=== PATIENT | male | born 1950 | race Caucasian/White ===

== ENCOUNTER 2016-05-26 09:00 | Outpatient (RCR) | payer OTHER ==
[~2016-05-26 09:00] MED LIST: ADVIL200 MG PO; APRESOLINE 25MG25 MG PO; ASPIRIN 81M81 MG/TA2 PO; ATIVAN 0.50.5 MG/TAB PO; BACTROBAN22 TOP; CALCITRIOL PO; CATAPRES 0.1MG0.1 MG PO; CEFTIN500 MG PO; CELEBREX 1100 MG/CAP PO; CEPHALEXIN500 M1 PO; COREG 6.256.25 MG/TA PO; COREG12.5 MG PO; COZAAR100 MG PO; DESYREL 100MG100 MG PO; EFFEXOR-XR150 MG PO; FISH OIL1000 MG PO; FLAX OIL1000 MG PO; FLOMAX 0.40.4 MG/CAP PO; GENTAM TOP; LAMICTAL 100MG100 MG PO; LAMICTAL200 MG PO; LANTUS100 U/ML SC; LIPITOR 80MG80 MG PO; LOPRESSOR 550 MG/TAB PO; NEPHROCAP PO; NEPHROVITE; NEUT PO; NICORETTE2 M1 MM; NICORETTE2 M1 PO; NORCO 325 MG-51 TAB PO; NORVASC 5MG5 MG/TAB PO; NOVOLOG 100U100 U/M1 SQ; NOVOLOG FLEX100 U/ML SC; PEPCID 20MG TAB20 MG PO; PERCOCET 325 MG1 TA2 PO; PHOS LO PO; PHOSLO667 MG PO; PROAIR HFA0.09 MG/AC IH; ROCALTROL0.5 MCG PO; TYLENOL 500MG500 MG PO; ULTRAM 50MG TAB50 MG PO; VASOTEC 10M10 MG/TAB PO; XANAX .25M0.25 MG/TA PO; XANAX 0.5MG0.5 MG PO; ZANTAC 150150 MG PO; ZANTAC 150MG T150 MG PO; ZOFRAN 4MG T4 MG/TAB PO; ZOFRAN8 MG PO
== END 2016-06-02 | disposition home or self-care (01) ==
LOC: WSPT
DX: R53.1 Weakness (principal)
CPT/HCPCS: G0283-GP; G8978-GP; G8979-GP

== ENCOUNTER 2016-07-05 09:30 | Emergency (ER) | payer OTHER ==
[~2016-07-05] VITALS: Ht 182.9 cm; Wt 92.5 kg
[2016-07-05 09:34] VITALS: TEMP 98.7
[2016-07-05 10:17] LABS: ADJUSTED CALCIUM 9.8 mg/dL (8.4-10.2); ALBUMIN 4.4 gm/dL (3.5-5.0); BILIRUBIN,TOTAL 0.8 mg/dL (0.0-1.0); CALCIUM 10.1 mg/dL (8.4-10.2); POTASSIUM 5.4 mmol/L (3.4-5.0); TOTAL PROTEIN 7.8 gm/dL (6.4-8.2)
[2016-07-05 10:18] LABS: BASO # 0.1 (0.0-0.2); BASO % 0.8 % (0.0-2.0); EOS # 0.4 (0.0-0.7); EOS % 4.1 % (0-4.0); GRAN # 6.1 (1.4-6.5); GRAN % 62.1 % (42.2-75.2); LYMPH # 2.4 (1.2-3.4); LYMPH % 24.2 % (20.0-51.0); MEAN CELL VOLUME 97 fl (80.0-100.0); MEAN CORPUSCULAR HGB CONC 33 g/dl (33.0-37.0); MEAN PLATELET VOLUME 10.2 fl (7.4-10.4); MONO # 0.8 (0.1-0.6); MONO % 8.5 % (1.7-9.3); PLATELET COUNT 242 K/mm3 (130-400); RED BLOOD COUNT 2.84 M/mm3 (4.20-5.60); REDCELL DISTRIBUTION WIDTH-CV 13.1 % (11.5-14.5); WHITE BLOOD COUNT 9.8 K/mm3 (4.8-10.8)
[2016-07-05 10:30] LABS: HEMATOCRIT 27.6 % (42.0-52.0); HEMOGLOBIN 9.2 g/dl (13.5-18.0); MEAN CORPUSCULAR HEMOGLOBIN 32 pg (27.0-31.0)
[2016-07-05 10:36] LABS: CREATININE, serum 10.9 mg/dL (0.66-1.25)
[2016-07-05] MEDS ORDERED: ARANESP0.04 MG/ML SQ (11:01)
[2016-07-05] MEDS ORDERED: RENA-VITE1 TAB PO (11:01)
[2016-07-05] MEDS ORDERED: CALCITRIOL PO (11:02)
[2016-07-05 12:45] VITALS: BP 150/82; PULSE 86
== END 2016-07-05 12:46 | disposition home or self-care (01) ==
LOC: COL.ER 09:30
PROVIDERS: Emergency Medicine
DX: R31.9 Hematuria, unspecified (principal); E11.22 Type 2 diabetes mellitus with diabetic chronic kidney disease; I12.0 Hypertensive chronic kidney disease with stage 5 chronic kidney disease or end stage renal disease; N18.6 End stage renal disease; F17.210 Nicotine dependence, cigarettes, uncomplicated; Z99.2 Dependence on renal dialysis; I73.9 Peripheral vascular disease, unspecified; D64.9 Anemia, unspecified
CPT/HCPCS: Q9967

== ENCOUNTER 2016-08-11 09:00 | Outpatient (RCR) | payer OTHER ==
[~2016-08-11 09:00] MED LIST changes: +ARANESP0.04 MG/ML SQ; +RENA-VITE1 TAB PO
[2016-08-26] MEDS ORDERED: XANAX .25M0.25 MG/TA PO (14:39)
[2016-08-26] MEDS ORDERED: LIPITOR 80MG80 MG PO ×2 (14:41→14:44)
[2016-08-26] MEDS ORDERED: LASIX 40MG TABL40 MG PO (14:43)
[2016-08-26] MEDS ORDERED: APRESOLINE50 MG PO (14:46)
[2016-08-26] MEDS ORDERED: LANTUS100 U/ML SQ (14:48)
[2016-08-26] MEDS ORDERED: LAMICTAL200 MG PO (14:51)
[2016-08-26] MEDS ORDERED: NEPRO CARB STEADY PO (14:54)
[2016-08-26] MEDS ORDERED: NICORETTE2 M1 PO (14:55)
[2016-08-26] MEDS ORDERED: NICODERM C14 MG/PATC TD (14:55)
[2016-08-26] MEDS ORDERED: RENVELA800 MG PO (15:00)
[2016-08-26] MEDS ORDERED: ARANESP0.04 MG/ML SQ ×2 (15:03→15:17)
[2016-08-26] MEDS ORDERED: SODIUM FER62.5 MG/5 IV (15:08)
[2016-08-26] MEDS ORDERED: TYLENOL 500MG500 MG PO (15:09)
[2016-08-26] MEDS ORDERED: VITAMIN E1000 U/CAP PO (15:10)
[2016-08-26] MEDS ORDERED: ZANTAC 150MG T150 MG PO (15:10)
== END 2016-09-05 | disposition still patient (30) ==
LOC: WSPT
DX: R53.1 Weakness (principal)

== ENCOUNTER 2016-08-26 13:30 | Day surgery (SDC) | payer OTHER ==
[~2016-08-26] VITALS: Ht 182.9 cm; Wt 94.2 kg
[2016-08-26] VITALS (9 sets, daily range): BP systolic 109–149; BP diastolic 57–94; PULSE 92–104; TEMP 97.5–98.9
[2016-08-26 14:15] LABS: HEMATOCRIT 27.7 % (42.0-52.0); MEAN CELL VOLUME 101 fl (80.0-100.0); MEAN CORPUSCULAR HEMOGLOBIN 33 pg (27.0-31.0); MEAN CORPUSCULAR HGB CONC 33 g/dl (33.0-37.0); MEAN PLATELET VOLUME 9.3 fl (7.4-10.4); PLATELET COUNT 337 K/mm3 (130-400); RED BLOOD COUNT 2.74 M/mm3 (4.20-5.60); WHITE BLOOD COUNT 12.6 K/mm3 (4.8-10.8)
[2016-08-26 14:32] LABS: CALCIUM 9.6 mg/dL (8.4-10.2); POTASSIUM 4.6 mmol/L (3.4-5.0)
[2016-08-26] MEDS ORDERED: XANAX .25M0.25 MG/TA PO (14:39)
[2016-08-26] MEDS ORDERED: LIPITOR 80MG80 MG PO ×2 (14:41→14:44)
[2016-08-26] MEDS ORDERED: LASIX 40MG TABL40 MG PO (14:43)
[2016-08-26] MEDS ORDERED: APRESOLINE50 MG PO (14:46)
[2016-08-26] MEDS ORDERED: LANTUS100 U/ML SQ (14:48)
[2016-08-26] MEDS ORDERED: LAMICTAL200 MG PO (14:51)
[2016-08-26] MEDS ORDERED: NEPRO CARB STEADY PO (14:54)
[2016-08-26] MEDS ORDERED: NICORETTE2 M1 PO (14:55)
[2016-08-26] MEDS ORDERED: NICODERM C14 MG/PATC TD (14:55)
[2016-08-26 14:59] LABS: CREATININE, serum 5.84 mg/dL (0.66-1.25)
[2016-08-26] MEDS ORDERED: RENVELA800 MG PO (15:00)
[2016-08-26] MEDS ORDERED: ARANESP0.04 MG/ML SQ ×2 (15:03→15:17)
[2016-08-26] MEDS ORDERED: SODIUM FER62.5 MG/5 IV (15:08)
[2016-08-26] MEDS ORDERED: TYLENOL 500MG500 MG PO (15:09)
[2016-08-26] MEDS ORDERED: ZANTAC 150MG T150 MG PO (15:10)
[2016-08-26] MEDS ORDERED: VITAMIN E1000 U/CAP PO (15:10)
[2016-08-27 01:00] VITALS: BP 150/74; PULSE 114; TEMP 98.8
[2016-08-27 05:10] VITALS: BP 159/81; PULSE 105; TEMP 97.8
== END 2016-08-27 10:59 | disposition home or self-care (01) ==
LOC: SDCO 13:30 → SURG 18:52 → SDCO 08-27 10:59
PROVIDERS: Nurse Anesthetist, Certified Registered
DX: N32.9 Bladder disorder, unspecified (principal); I12.0 Hypertensive chronic kidney disease with stage 5 chronic kidney disease or end stage renal disease; E11.22 Type 2 diabetes mellitus with diabetic chronic kidney disease; E11.621 Type 2 diabetes mellitus with foot ulcer; E11.40 Type 2 diabetes mellitus with diabetic neuropathy, unspecified; N18.6 End stage renal disease; F17.210 Nicotine dependence, cigarettes, uncomplicated; D64.9 Anemia, unspecified; K21.9 Gastro-esophageal reflux disease without esophagitis; I50.9 Heart failure, unspecified; I48.91 Unspecified atrial fibrillation; J44.9 Chronic obstructive pulmonary disease, unspecified; G47.33 Obstructive sleep apnea (adult) (pediatric); E78.5 Hyperlipidemia, unspecified; Z79.84 Long term (current) use of oral hypoglycemic drugs; Z95.820 Peripheral vascular angioplasty status with implants and grafts; Z80.42 Family history of malignant neoplasm of prostate; Z80.9 Family history of malignant neoplasm, unspecified; Z99.2 Dependence on renal dialysis; Z79.4 Long term (current) use of insulin
CPT/HCPCS: OP; A9284; C1769; J2250; J2704; J3010; J7030; Q9967

== ENCOUNTER 2016-09-24 07:55 | Inpatient (IN) | payer OTHER ==
[2016-09-24] VITALS (9 sets, daily range): BP systolic 128–148; BP diastolic 66–94; PULSE 88–101; TEMP 98.2–98.3
[~2016-09-24] VITALS: Ht 182.9 cm; Wt 94.5 kg
[~2016-09-24 07:55] MED LIST changes: +APRESOLINE50 MG PO; +LANTUS100 U/ML SQ; +LASIX 40MG TABL40 MG PO; +NEPRO CARB STEADY PO; +NICODERM C14 MG/PATC TD; +RENVELA800 MG PO; +SODIUM FER62.5 MG/5 IV; +VITAMIN E1000 U/CAP PO
[2016-09-24 09:29] LABS: BASO # 0.1 (0.0-0.2); BASO % 0.5 % (0.0-2.0); EOS # 0.4 (0.0-0.7); EOS % 4.1 % (0-4.0); GRAN # 7.6 (1.4-6.5); GRAN % 75.1 % (42.2-75.2); LYMPH # 1.4 (1.2-3.4); LYMPH % 13.4 % (20.0-51.0); MEAN CELL VOLUME 101 fl (80.0-100.0); MEAN CORPUSCULAR HGB CONC 31 g/dl (33.0-37.0); MEAN PLATELET VOLUME 10.2 fl (7.4-10.4); MONO # 0.7 (0.1-0.6); MONO % 6.6 % (1.7-9.3); PLATELET COUNT 264 K/mm3 (130-400); REDCELL DISTRIBUTION WIDTH-CV 14.3 % (11.5-14.5); WHITE BLOOD COUNT 10.1 K/mm3 (4.8-10.8)
[2016-09-24 09:31] LABS: HEMATOCRIT 21.1 % (42.0-52.0); HEMOGLOBIN 6.6 g/dl (13.5-18.0); MEAN CORPUSCULAR HEMOGLOBIN 31 pg (27.0-31.0)
[2016-09-24 09:39] LABS: ADJUSTED CALCIUM 9.7 mg/dL (8.4-10.2); ALBUMIN 3.8 gm/dL (3.5-5.0); BILIRUBIN,TOTAL 0.5 mg/dL (0.0-1.0); C-REACTIVE PROTEIN 7.1 mg/dL (0.0-0.9); CALCIUM 9.5 mg/dL (8.4-10.2); MAGNESIUM 2.4 mg/dL (1.6-2.3); POTASSIUM 4.2 mmol/L (3.4-5.0); TOTAL PROTEIN 7.2 gm/dL (6.4-8.2)
[2016-09-24 09:45] LABS: CREATININE, serum 6.65 mg/dL (0.66-1.25)
[2016-09-24 09:52] LABS: ERYTHROCYTE SEDIMENTATION RATE > 140 mm/hr (0-30)
[2016-09-24] MEDS ORDERED: NICORETTE2 M1 MM (09:58)
[2016-09-24] MEDS ORDERED: [UNRECOGNIZED DRUG - OTHER] PO (09:59)
[2016-09-25] VITALS (15 sets, daily range): BP systolic 139–179; BP diastolic 72–94; PULSE 94–108; TEMP 97.5–99
[2016-09-25 06:06] LABS: BASO # 0.1 (0.0-0.2); BASO % 1.2 % (0.0-2.0); EOS # 0.4 (0.0-0.7); EOS % 4.9 % (0-4.0); GRAN # 6.2 (1.4-6.5); GRAN % 72.1 % (42.2-75.2); HEMATOCRIT 23.6 % (42.0-52.0); HEMOGLOBIN 7.4 g/dl (13.5-18.0); LYMPH # 1.3 (1.2-3.4); LYMPH % 15.3 % (20.0-51.0); MEAN CELL VOLUME 98 fl (80.0-100.0); MEAN CORPUSCULAR HEMOGLOBIN 31 pg (27.0-31.0); MEAN CORPUSCULAR HGB CONC 31 g/dl (33.0-37.0); MEAN PLATELET VOLUME 9.9 fl (7.4-10.4); MONO # 0.5 (0.1-0.6); PLATELET COUNT 291 K/mm3 (130-400); REDCELL DISTRIBUTION WIDTH-CV 14.6 % (11.5-14.5); WHITE BLOOD COUNT 8.6 K/mm3 (4.8-10.8)
[2016-09-25 06:16] LABS: CALCIUM 9.7 mg/dL (8.4-10.2); POTASSIUM 4.9 mmol/L (3.4-5.0)
[2016-09-25 06:18] LABS: CREATININE, serum 4.86 mg/dL (0.66-1.25)
[2016-09-26 04:33] VITALS: BP 138/74; PULSE 94; TEMP 97.9
[2016-09-26 07:26] LABS: BASO # 0.1 (0.0-0.2); BASO % 0.9 % (0.0-2.0); EOS # 0.5 (0.0-0.7); EOS % 4.8 % (0-4.0); GRAN # 7.5 (1.4-6.5); GRAN % 74.7 % (42.2-75.2); LYMPH # 1.4 (1.2-3.4); LYMPH % 13.5 % (20.0-51.0); MEAN CELL VOLUME 98 fl (80.0-100.0); MEAN CORPUSCULAR HGB CONC 32 g/dl (33.0-37.0); MEAN PLATELET VOLUME 10.7 fl (7.4-10.4); MONO # 0.6 (0.1-0.6); MONO % 5.5 % (1.7-9.3); PLATELET COUNT 316 K/mm3 (130-400); RED BLOOD COUNT 3.08 M/mm3 (4.20-5.60); REDCELL DISTRIBUTION WIDTH-CV 15.2 % (11.5-14.5)
[2016-09-26 07:27] LABS: HEMATOCRIT 30.1 % (42.0-52.0); HEMOGLOBIN 9.5 g/dl (13.5-18.0); MEAN CORPUSCULAR HEMOGLOBIN 31 pg (27.0-31.0)
[2016-09-26 07:38] LABS: ALBUMIN 4.2 gm/dL (3.5-5.0); CALCIUM 10.1 mg/dL (8.4-10.2); PHOSPHOROUS 5.4 mg/dL (2.5-4.5); POTASSIUM 5.5 mmol/L (3.4-5.0)
[2016-09-26 07:41] LABS: CREATININE, serum 6.72 mg/dL (0.66-1.25)
[2016-09-26 08:04] VITALS: BP 130/69; PULSE 94; TEMP 97.8
[2016-09-26 11:18] VITALS: BP 137/74; BP 154/70; PULSE 100; TEMP 97.7; TEMP 98.6
[2016-09-26 16:15] VITALS: BP 159/91; PULSE 106; TEMP 97.5
[2016-09-26 20:00] VITALS: BP 137/74; PULSE 96; TEMP 97.6
[2016-09-26 23:23] VITALS: BP 123/76; PULSE 86; TEMP 97.4
[2016-09-27 03:37] VITALS: BP 123/73; PULSE 95; TEMP 97.5
[2016-09-27 06:44] LABS: MEAN CELL VOLUME 98 fl (80.0-100.0); MEAN CORPUSCULAR HGB CONC 31 g/dl (33.0-37.0); MEAN PLATELET VOLUME 10.5 fl (7.4-10.4); PLATELET COUNT 313 K/mm3 (130-400); RED BLOOD COUNT 2.88 M/mm3 (4.20-5.60); REDCELL DISTRIBUTION WIDTH-CV 14.8 % (11.5-14.5); WHITE BLOOD COUNT 11.2 K/mm3 (4.8-10.8)
[2016-09-27 06:47] LABS: ADD PATHOLOGY DIFF REVIEW NO; HEMATOCRIT 28.3 % (42.0-52.0); HEMOGLOBIN 8.9 g/dl (13.5-18.0); MEAN CORPUSCULAR HEMOGLOBIN 31 pg (27.0-31.0)
[2016-09-27 06:51] LABS: ALBUMIN 4.2 gm/dL (3.5-5.0); CALCIUM 9.7 mg/dL (8.4-10.2); PHOSPHOROUS 5.8 mg/dL (2.5-4.5); POTASSIUM 5.3 mmol/L (3.4-5.0)
[2016-09-27 06:53] LABS: CREATININE, serum 8.22 mg/dL (0.66-1.25)
[2016-09-27 07:25] LABS: BAND 10 % (0-10); METAMYELOCYTE 2 % (0-0); MYELOCYTE 1 % (0-0); NEUTROPHILS 76 % (42.0-75.2); TOTAL CELLS COUNTED 100
[2016-09-27 07:26] LABS: HYPOCHROMIA 1+; PLATELET ESTIMATE INCREASED (NORMAL)
[2016-09-27 07:27] LABS: OVALOCYTES 1+
[2016-09-27 08:36] VITALS: BP 139/68; PULSE 98; TEMP 97.6
[2016-09-27] MEDS ORDERED: LASIX 80MG TABL80 MG PO (12:40)
== END 2016-09-27 13:27 | disposition home or self-care (01) | DRG 638 ==
LOC: COL.ER 07:55 → MEDICAL 09:52
PROVIDERS: Emergency Medicine; Internal Medicine
PROC: 5A1D60Z (ICD-10-PCS; principal; 2016-09-24)
DX: E11.621 Type 2 diabetes mellitus with foot ulcer (principal); I12.0 Hypertensive chronic kidney disease with stage 5 chronic kidney disease or end stage renal disease; L03.115 Cellulitis of right lower limb; E11.22 Type 2 diabetes mellitus with diabetic chronic kidney disease; N18.6 End stage renal disease; D63.1 Anemia in chronic kidney disease; F17.210 Nicotine dependence, cigarettes, uncomplicated; S92.354A Nondisplaced fracture of fifth metatarsal bone, right foot, initial encounter for closed fracture; Z99.2 Dependence on renal dialysis; Z79.4 Long term (current) use of insulin
CPT/HCPCS: J0692; J0882; J1815; J2270; J2916; J3370; J7050; P9016

== ENCOUNTER 2016-10-21 08:53 | Outpatient (CLI) | payer OTHER ==
[2016-10-21] VITALS (9 sets, daily range): BP systolic 125–156; BP diastolic 62–91; PULSE 92–105; TEMP 98.1
[~2016-10-21] VITALS: Ht 182.9 cm; Wt 89.5 kg
[~2016-10-21 08:53] MED LIST changes: +LASIX 80MG TABL80 MG PO; +[UNRECOGNIZED DRUG - OTHER] PO
[2016-10-21] MEDS ORDERED: NORVASC 5MG5 MG/TAB PO (10:39)
== END 2016-10-21 14:15 | disposition home or self-care (01) ==
LOC: COL.CAR 08:53
DX: Z45.2 Encounter for adjustment and management of vascular access device (principal); I12.0 Hypertensive chronic kidney disease with stage 5 chronic kidney disease or end stage renal disease; E11.22 Type 2 diabetes mellitus with diabetic chronic kidney disease; N18.6 End stage renal disease; J44.9 Chronic obstructive pulmonary disease, unspecified; Z79.4 Long term (current) use of insulin
CPT/HCPCS: J2250; J3010; Q9967

== ENCOUNTER 2017-03-22 07:57 | Day surgery (SDC) | payer OTHER ==
[~2017-03-22] VITALS: Ht 182.9 cm; Wt 90.1 kg
[2017-03-22 08:48] VITALS: BP 133/64; PULSE 86; TEMP 97.8
[2017-03-22] MEDS ORDERED: VITAMIN D31000 IU PO (08:59)
[2017-03-22 14:09] VITALS: BP 136/58; PULSE 101
[2017-03-22] MEDS ORDERED: NORCO 325 MG-51 TAB PO (14:16)
[2017-03-22 14:24] VITALS: BP 144/73; PULSE 102
[2017-03-22 14:39] VITALS: BP 147/71; PULSE 101
== END 2017-03-22 15:00 | disposition home or self-care (01) ==
LOC: SDCO 07:57
DX: M71.321 Other bursal cyst, right elbow (principal); Z88.8 Allergy status to other drugs, medicaments and biological substances; D64.9 Anemia, unspecified
CPT/HCPCS: J0690; J2250; J2704; J3010

== ENCOUNTER 2017-05-25 03:13 | Emergency (ER) | payer MEDICARE, OTHER ==
[~2017-05-25] VITALS: Ht 182.9 cm; Wt 87.7 kg
[~2017-05-25 03:13] MED LIST changes: +VITAMIN D31000 IU PO
[2017-05-25 03:16] VITALS: TEMP 97.7
[2017-05-25 03:47] LABS: BASO # 0.1 (0.0-0.2); BASO % 0.8 % (0.0-2.0); EOS # 0.2 (0.0-0.7); EOS % 2.2 % (0-4.0); GRAN # 6.1 (1.4-6.5); GRAN % 79.1 % (42.2-75.2); HEMATOCRIT 30.9 % (42.0-52.0); HEMOGLOBIN 9.8 g/dl (13.5-18.0); LYMPH # 0.6 (1.2-3.4); LYMPH % 8.4 % (20.0-51.0); MEAN CELL VOLUME 103 fl (80.0-100.0); MEAN CORPUSCULAR HEMOGLOBIN 33 pg (27.0-31.0); MEAN CORPUSCULAR HGB CONC 32 g/dl (33.0-37.0); MEAN PLATELET VOLUME 10.6 fl (7.4-10.4); MONO # 0.7 (0.1-0.6); MONO % 9.2 % (1.7-9.3); PLATELET COUNT 208 K/mm3 (130-400); RED BLOOD COUNT 3.01 M/mm3 (4.20-5.60); REDCELL DISTRIBUTION WIDTH-CV 16.9 % (11.5-14.5)
[2017-05-25] MEDS ORDERED: PEPCID AC20 MG PO (03:56)
[2017-05-25 04:01] LABS: ALANINE AMINOTRANSFERASE 37 U/L (21-72); ALBUMIN 4.4 gm/dL (3.5-5.0); ALKALINE PHOSPHATASE 101 U/L (50-136); ANION GAP 21 mmol/L (7-16); AST,SGOT 31 U/L (15-37); BILIRUBIN,TOTAL 0.7 mg/dL (0.0-1.0); BLOOD UREA NITROGEN 79 mg/dL (9-20); CALCIUM 10.2 mg/dL (8.4-10.2); CARBON DIOXIDE 21 mmol/L (22-30); CHLORIDE 92 mmol/L (98-107); GLUCOSE 188 mg/dL (74-106); SODIUM 134 mmol/L (137-145); TOTAL PROTEIN 7.7 gm/dL (6.4-8.2)
[2017-05-25 04:13] LABS: POTASSIUM 6.5 mmol/L (3.4-5.0)
[2017-05-25 04:14] LABS: CREATININE, serum 7.39 mg/dL (0.66-1.25); TROPONIN-I < 0.012 ng/mL (0.000-0.034)
[2017-05-25 05:40] VITALS: BP 139/81; PULSE 89
== END 2017-05-25 05:40 | disposition home or self-care (01) ==
LOC: COL.ER 03:13
PROVIDERS: Emergency Medicine
DX: E87.5 Hyperkalemia (principal); R06.02 Shortness of breath; E87.70 Fluid overload, unspecified; I12.0 Hypertensive chronic kidney disease with stage 5 chronic kidney disease or end stage renal disease; E11.22 Type 2 diabetes mellitus with diabetic chronic kidney disease; N18.6 End stage renal disease; I73.9 Peripheral vascular disease, unspecified; E66.9 Obesity, unspecified; F17.210 Nicotine dependence, cigarettes, uncomplicated; Z99.2 Dependence on renal dialysis; Z79.4 Long term (current) use of insulin

== ENCOUNTER 2017-07-10 21:41 | Emergency (ER) | payer OTHER ==
[~2017-07-10] VITALS: Ht 182.9 cm; Wt 85.0 kg
[~2017-07-10 21:41] MED LIST changes: +PEPCID AC20 MG PO
[2017-07-10 21:43] VITALS: TEMP 96.8
[2017-07-10] MEDS ORDERED: FLEXERIL 1010 MG/TAB PO (22:44)
[2017-07-10 23:26] VITALS: BP 125/74; PULSE 88
== END 2017-07-10 23:30 | disposition home or self-care (01) ==
LOC: COL.ER 21:41
DX: S29.9XXA Unspecified injury of thorax, initial encounter (principal); S20.211A Contusion of right front wall of thorax, initial encounter; E11.22 Type 2 diabetes mellitus with diabetic chronic kidney disease; N18.6 End stage renal disease; F17.210 Nicotine dependence, cigarettes, uncomplicated; Z99.2 Dependence on renal dialysis; W01.0XXA Fall on same level from slipping, tripping and stumbling without subsequent striking against object, initial encounter
CPT/HCPCS: A9284; J2270; J2360

== ENCOUNTER 2017-07-13 06:06 | Inpatient (IN) | payer MEDICARE ==
[~2017-07-13] VITALS: Ht 182.9 cm; Wt 85.0 kg
[~2017-07-13 06:06] MED LIST changes: +FLEXERIL 1010 MG/TAB PO
[2017-07-13 07:29] LABS: ALANINE AMINOTRANSFERASE 39 U/L (21-72); ALBUMIN 4.3 gm/dL (3.5-5.0); ALKALINE PHOSPHATASE 110 U/L (50-136); ANION GAP 30 mmol/L (7-16); AST,SGOT 44 U/L (15-37); BILIRUBIN,TOTAL 0.7 mg/dL (0.0-1.0); CALCIUM 9.7 mg/dL (8.4-10.2); GLUCOSE 97 mg/dL (74-106); MAGNESIUM 2.9 mg/dL (1.6-2.3); SODIUM 128 mmol/L (137-145); TOTAL PROTEIN 8.3 gm/dL (6.4-8.2)
[2017-07-13 07:30] LABS: BASO # 0.1 (0.0-0.2); BASO % 0.6 % (0.0-2.0); EOS # 0.1 (0.0-0.7); EOS % 0.9 % (0-4.0); GRAN # 8.3 (1.4-6.5); GRAN % 83.1 % (42.2-75.2); HEMATOCRIT 33.9 % (42.0-52.0); LYMPH # 0.8 (1.2-3.4); LYMPH % 8.2 % (20.0-51.0); MEAN CELL VOLUME 97 fl (80.0-100.0); MEAN CORPUSCULAR HEMOGLOBIN 32 pg (27.0-31.0); MEAN CORPUSCULAR HGB CONC 32 g/dl (33.0-37.0); MONO # 0.7 (0.1-0.6); MONO % 6.7 % (1.7-9.3); PLATELET COUNT 273 K/mm3 (130-400); RED BLOOD COUNT 3.49 M/mm3 (4.20-5.60); REDCELL DISTRIBUTION WIDTH-CV 16.9 % (11.5-14.5)
[2017-07-13 07:40] LABS: BLOOD UREA NITROGEN 145 mg/dL (9-20)
[2017-07-13 07:42] LABS: POTASSIUM 7.7 mmol/L (3.4-5.0)
[2017-07-13 07:43] LABS: CARBON DIOXIDE 14 mmol/L (22-30); CHLORIDE 85 mmol/L (98-107); PHOSPHOROUS 9.5 mg/dL (2.5-4.5)
[2017-07-13 07:45] LABS: TROPONIN-I < 0.012 ng/mL (0.000-0.034)
[2017-07-13 13:05] VITALS: BP 161/82; PULSE 85; TEMP 97.6
[2017-07-13 13:17] LABS: CALCIUM 9.9 mg/dL (8.4-10.2)
[2017-07-13] MEDS ORDERED: VITAMIN B COMPL1 SGL PO (13:17)
[2017-07-13] MEDS ORDERED: VITAMIN E1000 U/CAP PO (13:18)
[2017-07-13 13:19] LABS: POTASSIUM 4.6 mmol/L (3.4-5.0)
[2017-07-13 13:21] LABS: CREATININE, serum 6.57 mg/dL (0.66-1.25)
[2017-07-13 15:55] VITALS: BP 143/61; PULSE 94; TEMP 97.8
[2017-07-13 20:47] VITALS: BP 130/73; PULSE 90; TEMP 98.1
[2017-07-14 00:07] VITALS: BP 119/62; PULSE 88; TEMP 97.7
[2017-07-14 04:12] VITALS: BP 126/62; PULSE 94; TEMP 97.6
[2017-07-14 06:26] LABS: BASO % 0.6 % (0.0-2.0); EOS # 0.1 (0.0-0.7); GRAN # 4.9 (1.4-6.5); GRAN % 73.8 % (42.2-75.2); LYMPH # 0.7 (1.2-3.4); LYMPH % 10.8 % (20.0-51.0); MEAN CELL VOLUME 97 fl (80.0-100.0); MEAN CORPUSCULAR HGB CONC 32 g/dl (33.0-37.0); MEAN PLATELET VOLUME 10.1 fl (7.4-10.4); MONO # 0.8 (0.1-0.6); MONO % 12.3 % (1.7-9.3); PLATELET COUNT 221 K/mm3 (130-400); RED BLOOD COUNT 3.11 M/mm3 (4.20-5.60); REDCELL DISTRIBUTION WIDTH-CV 17.3 % (11.5-14.5)
[2017-07-14 06:35] LABS: HEMOGLOBIN 9.7 g/dl (13.5-18.0); MEAN CORPUSCULAR HEMOGLOBIN 31 pg (27.0-31.0)
[2017-07-14 06:48] LABS: CALCIUM 9.3 mg/dL (8.4-10.2); POTASSIUM 5.2 mmol/L (3.4-5.0)
[2017-07-14 07:24] LABS: CREATININE, serum 8.41 mg/dL (0.66-1.25)
[2017-07-14] MEDS ORDERED: ZOFRAN ODT4 MG PO (09:29)
[2017-07-14 10:13] VITALS: BP 140/70; PULSE 97; TEMP 98.8
== END 2017-07-14 12:40 | disposition home or self-care (01) | DRG 640 ==
LOC: COL.ER 06:06 → IMCU 07:50 → MEDICAL 07:50
PROVIDERS: Emergency Medicine; Internal Medicine
PROC: 5A1D70Z Performance of Urinary Filtration, Intermittent, Less than 6 Hours Per Day (ICD-10-PCS; principal; 2017-07-13)
DX: E87.5 Hyperkalemia (principal); N18.6 End stage renal disease; I12.0 Hypertensive chronic kidney disease with stage 5 chronic kidney disease or end stage renal disease; L03.115 Cellulitis of right lower limb; E11.22 Type 2 diabetes mellitus with diabetic chronic kidney disease; Z99.2 Dependence on renal dialysis; D63.1 Anemia in chronic kidney disease; M54.9 Dorsalgia, unspecified
CPT/HCPCS: J0610; J1650; J1815; J2270; J2405

== ENCOUNTER 2017-09-09 13:00 | Outpatient (RCR) | payer OTHER ==
[~2017-09-09 13:00] MED LIST changes: +VITAMIN B COMPL1 SGL PO; +ZOFRAN ODT4 MG PO
== END 2017-09-12 | disposition home or self-care (01) ==
LOC: WSPT
DX: I89.0 Lymphedema, not elsewhere classified (principal)

== ENCOUNTER 2017-11-08 15:15 | Outpatient (RCR) | payer OTHER | END 2017-12-13 | disposition home or self-care (01) | LOC: WSPT | DX: R29.898 Other symptoms and signs involving the musculoskeletal system (principal); Z91.81 History of falling; I89.0 Lymphedema, not elsewhere classified; C44.01 Basal cell carcinoma of skin of lip; I10 Essential (primary) hypertension; F17.210 Nicotine dependence, cigarettes, uncomplicated; Z79.84 Long term (current) use of oral hypoglycemic drugs; N18.6 End stage renal disease; Z99.2 Dependence on renal dialysis; Z79.899 Other long term (current) drug therapy; Z59.0 Homelessness ==

== ENCOUNTER 2018-01-25 15:45 | Outpatient (RCR) | payer OTHER | END 2018-03-19 | disposition home or self-care (01) | LOC: WSPT | DX: R53.1 Weakness (principal); R29.6 Repeated falls; Z91.81 History of falling; N17.8 Other acute kidney failure; Z79.84 Long term (current) use of oral hypoglycemic drugs; Z79.899 Other long term (current) drug therapy ==

== ENCOUNTER 2018-04-20 08:45 | Outpatient (RCR) | payer OTHER ==
[2018-05-30] MEDS ORDERED: GLUCOTROL 5M5 MG/TAB PO (11:09)
[2018-05-30] MEDS ORDERED: MUCUS RELIEF400 M1 PO (11:10)
[2018-05-30] MEDS ORDERED: PRIL40 PO (11:13)
[2018-05-30] MEDS ORDERED: ARANESP0.04 MG/0. SQ (11:21)
[2018-06-02] MEDS ORDERED: NORCO 325 MG-7.1 TAB PO (12:30)
== END 2018-06-05 | disposition home or self-care (01) ==
LOC: WSPT
DX: I89.0 Lymphedema, not elsewhere classified (principal); Z79.84 Long term (current) use of oral hypoglycemic drugs; Z79.891 Long term (current) use of opiate analgesic; Z79.899 Other long term (current) drug therapy

== ENCOUNTER → 2018-04-27 | Outpatient (CLI) | payer OTHER | LOC: COL.RAD 07:41 | DX: K82.8 Other specified diseases of gallbladder (principal); R18.8 Other ascites ==

== ENCOUNTER 2018-05-30 09:40 | Inpatient (IN) | payer OTHER ==
[~2018-05-30] VITALS: Ht 182.9 cm; Wt 83.5 kg
[2018-05-30 10:06] LABS: BASO # 0.1 (0.0-0.2); EOS # 0.2 (0.0-0.7); EOS % 3.2 % (0-4.0); GRAN # 4.1 (1.4-6.5); GRAN % 69.5 % (42.2-75.2); HEMOGLOBIN 11.4 g/dl (13.5-18.0); LYMPH % 16.6 % (20.0-51.0); MEAN CELL VOLUME 98 fl (80.0-100.0); MEAN CORPUSCULAR HEMOGLOBIN 31 pg (27.0-31.0); MEAN CORPUSCULAR HGB CONC 32 g/dl (33.0-37.0); MEAN PLATELET VOLUME 10.7 fl (7.4-10.4); MONO # 0.6 (0.1-0.6); MONO % 9.4 % (1.7-9.3); PLATELET COUNT 184 K/mm3 (130-400); RED BLOOD COUNT 3.66 M/mm3 (4.20-5.60); REDCELL DISTRIBUTION WIDTH-CV 16.1 % (11.5-14.5)
[2018-05-30 10:11] LABS: HEMATOCRIT 35.7 % (42.0-52.0)
[2018-05-30 10:20] LABS: ALANINE AMINOTRANSFERASE < 6 U/L (21-72); ALBUMIN 3.9 gm/dL (3.5-5.0); ALKALINE PHOSPHATASE 113 U/L (50-136); ANION GAP 16 mmol/L (7-16); AST,SGOT 19 U/L (15-37); BILIRUBIN,TOTAL 1.4 mg/dL (0.0-1.0); BLOOD UREA NITROGEN 80 mg/dL (9-20); C-REACTIVE PROTEIN 1.9 mg/dL (0.0-0.9); CALCIUM 10.2 mg/dL (8.4-10.2); CARBON DIOXIDE 23 mmol/L (22-30); CHLORIDE 95 mmol/L (98-107); GLUCOSE 94 mg/dL (74-106); SODIUM 134 mmol/L (137-145); TOTAL PROTEIN 7.5 gm/dL (6.4-8.2)
[2018-05-30 10:29] LABS: TROPONIN-I 0.021 ng/mL (0.000-0.035)
[2018-05-30 10:53] LABS: CREATININE, serum 9.34 (0.66-1.25)
[2018-05-30 10:54] LABS: POTASSIUM 6.4 mmol/L (3.4-5.0)
[2018-05-30] MEDS ORDERED: GLUCOTROL 5M5 MG/TAB PO (11:09)
[2018-05-30] MEDS ORDERED: MUCUS RELIEF400 M1 PO (11:10)
[2018-05-30] MEDS ORDERED: PRIL40 PO (11:13)
[2018-05-30] MEDS ORDERED: ARANESP0.04 MG/0. SQ (11:21)
--- NOTE | 2018-05-30 11:48 | NUR ---
received report from MAICO Pollack.pt to be transported to room 353 shortly.
--- NOTE | 2018-05-30 13:31 | NUR ---
PATIENT ARRIVED TO ROOM 353.ORIENTED TO ROOM.
--- NOTE | 2018-05-30 13:32 | NUR ---
PT TAKEN TO DIALYSIS AT THIS TIME.C/O CHRONIC BACK PAIN.WILL GIVEN PAIN MED WHEN ORDERS RECEIVED.NO NEEDS VOICED AT THIS TIME.
--- NOTE | 2018-05-30 16:30 | NUR ---
pt tolerated dialysis well.resting in bed at this time.no concerns voiced.
[2018-05-30 16:35] VITALS: BP 106/56; PULSE 80; TEMP 97.8
[2018-05-30 18:21] VITALS: BP 106/56; PULSE 80; TEMP 97.8
--- NOTE | 2018-05-30 19:14 | NUR ---
Assessment complete.patient sitting up in bed.a/ox3.c/o pain to back and BLE.prn morphine given.breathing even and unlabored.abdomen distented and bowel sounds audible and hyperactive.INT to RFA.patient reports skin tear to RFA.dressing CDI.scabs noted to knee and left lower chin.patient says it is as a result of previous falls.BLE is red r/t chronic venous insufficiency.fistula to YANNA.pt denies any other needs at this time.call light in reach
[2018-05-30 19:24] VITALS: BP 127/72; PULSE 81; TEMP 97.7
--- NOTE | 2018-05-30 19:34 | NUR ---
report given to MAICO Silverman
[2018-05-30 23:11] VITALS: BP 108/56; PULSE 73; TEMP 97.9
[2018-05-31 03:27] VITALS: BP 99/55; PULSE 78; TEMP 97.8
--- NOTE | 2018-05-31 04:52 | NUR ---
PT NEEDED PRN MED AT HS FOR PAIN AND A XANAX TO RELAX HIM IN ORDER TO SLEEP. AFTER A COUPLE HOURS PT WAS UNABLE TO GET TO SLEEP AND REQUESTED A TRAZODONE. NO FURTHER C/O SLEEPLESSNESS AFTERWARDS. NO OTHER ISSUES OR CONSERNS VOICED OVERNIGHT
[2018-05-31 06:31] LABS: INR 1.3 (0.8-3.0); PROTHROMBIN TIME 15.1 SECONDS (9.7-12.8)
[2018-05-31 07:12] VITALS: BP 113/67; PULSE 77; TEMP 97.7
--- NOTE | 2018-05-31 08:00 | NUR ---
assesment completed. diminished breath sounds bilateral bases, no SOB. Telemetry on, INT r arm no redness. AV fistula to L upper arm WNL. reportsa aching pain in hands and back as well as sharp pains in ankles and back rating a 6 on the pain scale. primary nurse notified.
[2018-05-31 10:05] VITALS: BP 124/70; PULSE 83; TEMP 97.6
--- NOTE | 2018-05-31 10:40 | NUR ---
no change to assessment, took patient down to dialysis
[2018-05-31 11:04] LABS: BASO % 0.8 % (0.0-2.0); EOS # 0.2 (0.0-0.7); EOS % 4.3 % (0-4.0); GRAN # 3.4 (1.4-6.5); GRAN % 69.2 % (42.2-75.2); HEMOGLOBIN 10.5 g/dl (13.5-18.0); LYMPH # 0.8 (1.2-3.4); LYMPH % 16.7 % (20.0-51.0); MEAN CELL VOLUME 96 fl (80.0-100.0); MEAN CORPUSCULAR HEMOGLOBIN 31 pg (27.0-31.0); MEAN CORPUSCULAR HGB CONC 33 g/dl (33.0-37.0); MEAN PLATELET VOLUME 10.6 fl (7.4-10.4); MONO # 0.4 (0.1-0.6); MONO % 8.8 % (1.7-9.3); PLATELET COUNT 176 K/mm3 (130-400); RED BLOOD COUNT 3.37 M/mm3 (4.20-5.60); REDCELL DISTRIBUTION WIDTH-CV 15.9 % (11.5-14.5)
[2018-05-31 11:08] LABS: CALCIUM 9.4 mg/dL (8.4-10.2); HEMATOCRIT 32.2 % (42.0-52.0); POTASSIUM 4.6 mmol/L (3.4-5.0)
[2018-05-31 11:21] LABS: CREATININE, serum 5.33 (0.66-1.25)
--- NOTE | 2018-05-31 11:49 | NUR ---
Initial visit; Patient thanked Service Order Dispatcher for looking in on him and offering God's blessings.
--- NOTE | 2018-05-31 13:15 | NUR ---
Patient returned from dialysis at this time. No needs at this time.
--- NOTE | 2018-05-31 16:36 | NUR ---
SW met with patient about discharge planning. Patient lives at home alone with his dog. Patient receives primary care and medications through the [facility]. Patient's medications are mailed to him and his PCP visits him at his home. Patient uses a wheelchair, cane, or walker for mobility but no other DME is reported. [facility] and will resume those services once he is discharged. Patient also receives cleaning and cooking assistance through [facility] and those services are paid for by the [facility]. Patient does not report he has a DPOA. Patient also reports he should be able to discharge tomorrow. SW does not anticipate any discharge needs but will continue to follow.
[2018-05-31 16:44] VITALS: BP 123/71; PULSE 89; TEMP 97.5
[2018-05-31 19:55] VITALS: BP 121/72; PULSE 82; TEMP 98.6
[2018-06-01 00:13] VITALS: BP 127/80; PULSE 17; TEMP 98.2
--- NOTE | 2018-06-01 04:18 | NUR ---
PT HAD C/O PAIN AT HS AND NEEDED PAIN MEDS SOON HE COULD GET THEM, ADMINISTERED NEEDED. PT WAS ABLE TO GO TO SLEEP AROUND MIDNIGHT. NO OTHER C/O PAIN AFTERWARD.
[2018-06-01 04:38] VITALS: BP 130/58; PULSE 71; TEMP 97.3
--- NOTE | 2018-06-01 04:45 | NUR ---
PT AROUSE THIS AM AT VITALS CHECK AND WAS INQUIRING ABOUT PAIN MEDS, WAS UNABLE TO HAVE SOME AT THAT TIME, INFORMED PT THAT NEXT MEDS WOULD ABLE TO BE GIVEN AT 0600 AND THAT THIS NURSE WOULD BRING THEM TO HIM AT THAT TIME. PT CHANGED INTO CLEAN GOWN, SOCKS AND PJ PANTS FOR UPCOMING PROCEDURE. NO OTHER CONSERNS VOICED AT THIS TIME
[2018-06-01 07:19] VITALS: BP 121/74; PULSE 77; TEMP 97.4
--- NOTE | 2018-06-01 07:34 | NUR ---
THIS NURSE ADMINSITERED [place]TE WU, PT ASKED ABOUT HIS DILAUDID, AND ASKED IF HE COULD HAVE IT FOR HIS UP COMING PROCEDURE. THIS NURSE TOLD PT THAT DOCTOR ORDERED 4 DOSES OF THE DILAUDID AND THAT THIS WOULD BE HIS 3RD OF 4TH DOSE. DISCUSSED WITH PT THAT HE MAY WANT TO WAIT UNTIL AFTER THE PROCEDURE FOR THE MED DUE TO THE DILAUDID BEING A Q8H MED. PT STATED THAT HE STILL WANTED THE DILAUDID FOR THE PROCEDURE.
--- NOTE | 2018-06-01 07:39 | NUR ---
Consent obtained from patient for CT. Patient taken down by wheelchair. No further needs expressed from patient.
--- NOTE | 2018-06-01 07:40 | NUR ---
PT SIGNED CONSENT AND WENT DOWN FOR PARACENTESIS AT THIS TIME.
--- NOTE | 2018-06-01 08:34 | NUR ---
Patient back to room [address] Patient tolerated well. Call light within reach. No further needs expressed from patient.
--- NOTE | 2018-06-01 09:30 | NUR ---
Assessment complete and charted. Patient A&O, VS WNL. Patient complaints of pain in back, medication given when requested. INT CDI. Fistula PRATIBHA arm, CDI. Rounded abdomen. Patient had a paracentisis right lower quadrant abdomen, tolerated well, bandaid applied. Abrasions BLE scars and open to air. No further needs expressed from patient. Call light within reach
[2018-06-01 09:37] LABS: PERITONEAL -POLYMORPHONUCLEAR 5.3 % (0-25); PERITONEAL FLUID RBC 1000 /mm3 (0-0)
[2018-06-01 11:47] VITALS: BP 113/66; PULSE 99; TEMP 97.2
[2018-06-01 15:28] VITALS: BP 106/68; PULSE 82; TEMP 97.9
--- NOTE | 2018-06-01 17:57 | NUR ---
Patient sitting in recliner. A&O, reporting pain in back, pain medication given when requested. Patient had a paracentesis, RLQ. Puncture site has been draining. Nurse suggested replacing bandadge and putting a pressure dressing on. Patient refused and wants to let puncture site drain. Nurse informed patient that the site should not be draining and a pressure dressing is advised. Patient verbalized an understanding and still refused dressing change. VS stable. IV CDI. Patient has been using wheelchair in the hallway and tolerating well. No further needs expressed from patient. Call light within reach
--- NOTE | 2018-06-01 18:34 | NUR ---
Patient took bandaid off puncture site on RLQ. Patient has a towel over site to absorb fluid draining from site. Patient is refusing to have a pressure dressing on site. Nurse informed patient the risk of infection with no dressing over punture site. Patient verbalized an understanding and is still refusing to have a pressure dressing applied. Call light within reach
[2018-06-01 20:40] VITALS: BP 1008/72; BP 108/72; PULSE 79; TEMP 98.2
--- NOTE | 2018-06-02 04:12 | NUR ---
PT REQUESTED PRN DILAUDID AT HS AND ATIVAN. AFTER MED ADMINSTRATION PT WENT TO BED AND FURTHER C/O PAIN DURING THE NOC. APPEARED TO HAVE SLEPT WELL. PT CONTINUES TO HAVE TOWEL COLLECTING DRAINAGE FROM PARACENTESIS PUNTURE SITE.
[2018-06-02 04:54] VITALS: BP 132/73; PULSE 84; TEMP 97.9
[2018-06-02 08:27] VITALS: BP 117/75; PULSE 90; TEMP 98.1
--- NOTE | 2018-06-02 09:36 | NUR ---
Patient awaken for AM medications. Upon waking patient is very uncomfortable in area where paracentsis was done. Patient given IV/PO pain medication as he is so uncomfortable in lower back and abdomen. Patient had towel asorbing the drainage in his abdomen. Towels were dry this AM. Noted very little drainage. Patient agreeable to have moisture wicking dressing applied. ABD remains rounded but not as hard as this nurses previous assessment two days ago. No other needs at this time. Call light in place
--- NOTE | 2018-06-02 11:00 | NUR ---
Patient to dialysis at this time. States that pain is better with pain medication but still having significant discomfort in abdomen at the site of paracentsis
[2018-06-02 11:19] LABS: BASO # 0.1 (0.0-0.2); BASO % 0.9 % (0.0-2.0); EOS # 0.2 (0.0-0.7); EOS % 4.1 % (0-4.0); GRAN # 3.9 (1.4-6.5); GRAN % 69.3 % (42.2-75.2); HEMOGLOBIN 10.3 g/dl (13.5-18.0); LYMPH # 0.9 (1.2-3.4); LYMPH % 16.4 % (20.0-51.0); MEAN CELL VOLUME 97 fl (80.0-100.0); MEAN CORPUSCULAR HEMOGLOBIN 31 pg (27.0-31.0); MEAN CORPUSCULAR HGB CONC 32 g/dl (33.0-37.0); MEAN PLATELET VOLUME 10.5 fl (7.4-10.4); MONO # 0.5 (0.1-0.6); MONO % 9.1 % (1.7-9.3); PLATELET COUNT 193 K/mm3 (130-400); RED BLOOD COUNT 3.32 M/mm3 (4.20-5.60); REDCELL DISTRIBUTION WIDTH-CV 15.8 % (11.5-14.5)
[2018-06-02 11:20] LABS: HEMATOCRIT 32.1 % (42.0-52.0)
[2018-06-02 11:31] LABS: CALCIUM 9.5 mg/dL (8.4-10.2); POTASSIUM 5.4 mmol/L (3.4-5.0)
[2018-06-02 11:33] LABS: CREATININE, serum 6.62 (0.66-1.25)
--- NOTE | 2018-06-02 11:56 | NUR ---
Follow-up visit; Patient thanked Chargemaster Specialist for looking in on him again today and wishing him well.
[2018-06-02] MEDS ORDERED: NORCO 325 MG-7.1 TAB PO (12:30)
--- NOTE | 2018-06-02 14:00 | NUR ---
[facility] to pickle maker [facility]. Patient transfered to [facility] and discharged at this time with .
--- NOTE | 2018-06-02 14:20 | NUR ---
Patient returned from dialysis at this time.
[2018-06-02 14:59] VITALS: BP 119/65; PULSE 84; TEMP 97.8
--- NOTE | 2018-06-02 15:30 | NUR ---
Reviewed discharge instructions with patient. He verbalizes understanding. Reports that he is probably going to wish that he is going to Rehab. Explained to patient if it got to that point dont be afraid to call social science instructor for direction. Patient verbalizes understanding. Dressing remains intact to abdomen. No noted drainage. Review of discharge medications. No questions at this time. IV pain medication given per his request and then INT discontinued. No other needs at this time. Will await his ride
--- NOTE | 2018-06-02 16:05 | NUR ---
Patient discharged to home at this time.
== END 2018-06-02 16:05 | disposition home health service (06) | DRG 640 ==
LOC: COL.ER 09:40 → MEDICAL 11:08
PROVIDERS: Physician Assistant; ADMIT Internal Medicine
PROC: 5A1D70Z Performance of Urinary Filtration, Intermittent, Less than 6 Hours Per Day (ICD-10-PCS; principal; 2018-05-30)
PROC: 5A1D70Z Performance of Urinary Filtration, Intermittent, Less than 6 Hours Per Day (ICD-10-PCS; 2018-05-31)
PROC: 0W9G3ZZ Drainage of Peritoneal Cavity, Percutaneous Approach (ICD-10-PCS; 2018-06-01)
PROC: 5A1D70Z Performance of Urinary Filtration, Intermittent, Less than 6 Hours Per Day (ICD-10-PCS; 2018-06-02)
DX: E87.5 Hyperkalemia (principal); N18.6 End stage renal disease; I12.0 Hypertensive chronic kidney disease with stage 5 chronic kidney disease or end stage renal disease; N25.81 Secondary hyperparathyroidism of renal origin; R18.8 Other ascites; K76.6 Portal hypertension; E87.70 Fluid overload, unspecified; E11.22 Type 2 diabetes mellitus with diabetic chronic kidney disease; Z99.2 Dependence on renal dialysis; Z91.15 Patient's noncompliance with renal dialysis; I73.9 Peripheral vascular disease, unspecified; Z89.421 Acquired absence of other right toe(s); F17.210 Nicotine dependence, cigarettes, uncomplicated; D63.1 Anemia in chronic kidney disease
CPT/HCPCS: J0882; J1170; J1644; J2270; J7030

== ENCOUNTER 2018-06-30 16:21 | Inpatient (IN) | payer MEDICARE, OTHER ==
[~2018-06-30] VITALS: Ht 182.9 cm; Wt 76.3 kg
[~2018-06-30 16:21] MED LIST changes: +ARANESP0.04 MG/0. SQ; +GLUCOTROL 5M5 MG/TAB PO; +MUCUS RELIEF400 M1 PO; +NORCO 325 MG-7.1 TAB PO; +PRIL40 PO
[2018-06-30 16:51] LABS: BASO # 0.1 (0.0-0.2); BASO % 1.1 % (0.0-2.0); EOS # 0.4 (0.0-0.7); EOS % 4.4 % (0-4.0); GRAN % 74.3 % (42.2-75.2); HEMATOCRIT 34.3 % (42.0-52.0); HEMOGLOBIN 11.2 g/dl (13.5-18.0); LYMPH # 0.9 (1.2-3.4); LYMPH % 11.5 % (20.0-51.0); MEAN CELL VOLUME 96 fl (80.0-100.0); MEAN CORPUSCULAR HEMOGLOBIN 31 pg (27.0-31.0); MEAN CORPUSCULAR HGB CONC 33 g/dl (33.0-37.0); MEAN PLATELET VOLUME 10.9 fl (7.4-10.4); MONO # 0.7 (0.1-0.6); MONO % 8.3 % (1.7-9.3); PLATELET COUNT 216 K/mm3 (130-400); RED BLOOD COUNT 3.57 M/mm3 (4.20-5.60); REDCELL DISTRIBUTION WIDTH-CV 15.6 % (11.5-14.5)
[2018-06-30 16:54] LABS: INR 1.3 (0.8-3.0); PROTHROMBIN TIME 14.5 SECONDS (9.7-12.8)
[2018-06-30 16:56] LABS: PARTIAL THROMBOPLASTIN TIME 38.4 SECONDS (26.0-37.0)
[2018-06-30 17:00] LABS: LACTIC ACID 1.2 mmol/L (0.4-2.0)
[2018-06-30 17:01] LABS: ALANINE AMINOTRANSFERASE 9 U/L (21-72); ALBUMIN 3.9 gm/dL (3.5-5.0); ALKALINE PHOSPHATASE 177 U/L (50-136); ANION GAP 22 mmol/L (7-16); AST,SGOT 22 U/L (15-37); BILIRUBIN,TOTAL 1.5 mg/dL (0.0-1.0); BLOOD UREA NITROGEN 114 mg/dL (9-20); CALCIUM 10.1 mg/dL (8.4-10.2); CARBON DIOXIDE 18 mmol/L (22-30); CHLORIDE 98 mmol/L (98-107); GLUCOSE 87 mg/dL (74-106); LIPASE 143 U/L (23-300); MAGNESIUM 2.4 mg/dL (1.6-2.3); PHOSPHOROUS 7.3 mg/dL (2.5-4.5); SODIUM 138 mmol/L (137-145); TOTAL PROTEIN 7.8 gm/dL (6.4-8.2)
[2018-06-30 17:14] LABS: CREATININE, serum 11.41 (0.66-1.25); TROPONIN-I < 0.012 ng/mL (0.000-0.035)
[2018-06-30 17:16] LABS: POTASSIUM 7.1 mmol/L (3.4-5.0)
--- NOTE | 2018-06-30 19:10 | NUR ---
Report given to Aime NINA and care transfered. Pt back in dialysis at this time.
[2018-06-30 21:07] VITALS: BP 137/72; PULSE 84; TEMP 98.1
--- NOTE | 2018-06-30 22:56 | NUR ---
Completed assessment and admission; PT tolerated all cares and questions well; PT able to IND answer self assessment and medication questions; PT A&Ox4, BS active x4, Last BM 06/30/18, LUE fistual in active use, RW 20G IV INT, +2 edema to bilateral LE with discoloration, ABD distended nontender, LCTA with bilateral diminshed bases, SBA to BR for safety; Dr Joshi has completed medication recon with continued medication orders in place; verbal review with no changes during admission form; Minimal report of pain treated with PRN pain medication; No further assessed or reported concerns at time of exit; PT able to return to comfortable position in bed with personal items and call light within reach; Will continue to monitor. CDA
[2018-06-30 23:17] VITALS: BP 133/76; PULSE 89; TEMP 98.8
[2018-07-01] VITALS (8 sets, daily range): BP systolic 109–133; BP diastolic 62–88; PULSE 75–103; TEMP 97.9–98.8
--- NOTE | 2018-07-01 02:05 | NUR ---
PT resting intermittently in bed; PT requested a fan, although was denied a fan by house at this time; No further reported or assessed concerns or complaints at this time; PT resting in upright position in bed with personal items and call light within reach; Will continue to monitor. CDA
--- NOTE | 2018-07-01 07:18 | NUR ---
Report given to MAICO Carmen; No significant changes or concerns at time of shift change. CDA
--- NOTE | 2018-07-01 07:28 | NUR ---
Report reveived from MAICO Cohen. Pt rounded on. Pt is resting in bed. Call light in reach. Will continue to monitor.
--- NOTE | 2018-07-01 07:29 | NUR ---
Resting quietly at this time. No pain or needs reported. Dialysis called for the patient-to transport downstairs via wheelchair.
--- NOTE | 2018-07-01 07:50 | NUR ---
Pt was transported to dialysis via wheelchair.
[2018-07-01 08:23] LABS: HEMOGLOBIN 10.8 g/dl (13.5-18.0); MEAN CELL VOLUME 95 fl (80.0-100.0); MEAN CORPUSCULAR HEMOGLOBIN 31 pg (27.0-31.0); MEAN CORPUSCULAR HGB CONC 33 g/dl (33.0-37.0); MEAN PLATELET VOLUME 10.6 fl (7.4-10.4); PLATELET COUNT 210 K/mm3 (130-400); REDCELL DISTRIBUTION WIDTH-CV 15.6 % (11.5-14.5)
[2018-07-01 08:24] LABS: HEMATOCRIT 33.1 % (42.0-52.0)
[2018-07-01 08:34] LABS: CALCIUM 9.7 mg/dL (8.4-10.2)
[2018-07-01 08:42] LABS: CREATININE, serum 8.99 (0.66-1.25)
[2018-07-01 08:43] LABS: POTASSIUM 5.9 mmol/L (3.4-5.0)
[2018-07-01 10:28] LABS: BAND 2 % (0-10); EOSINOPHIL 3 % (0-4); LYMPHOCYTE 13 % (20.0-51.0); NEUTROPHILS 74 % (42.0-75.2)
[2018-07-01 10:29] LABS: ANISOCYTOSIS 1+; HYPOCHROMIA 2+; PLATELET ESTIMATE NORMAL (NORMAL)
--- NOTE | 2018-07-01 10:48 | NUR ---
SW attempted to meet with the patient, but he was in dialysis. SW will attempt at a later time.
--- NOTE | 2018-07-01 11:18 | NUR ---
Patient was not in the room.
--- NOTE | 2018-07-01 11:30 | NUR ---
Returned from dialysis at this time. No pain or needs. The call light is in place. Resting in bed now.
--- NOTE | 2018-07-01 19:23 | NUR ---
No change throughout the shift. The call light is in place. Report given to MAICO Macdonald to resume care.
--- NOTE | 2018-07-01 20:30 | NUR ---
Initial shift assessment done- denies pain at this time- denies need for pain meds,, has been resting most of the day- pleasant, no requests, tele on, VSS,,does not want HS snack-
--- NOTE | 2018-07-02 04:10 | NUR ---
Quiet night-- slept well, VSS, states back pain 4-07/07, requesting [place] at this time, no other requests,
[2018-07-02 05:10] VITALS: BP 132/87; PULSE 91; TEMP 97.3
[2018-07-02 07:26] VITALS: BP 133/80; PULSE 91; TEMP 98
[2018-07-02 07:41] LABS: BASO # 0.1 (0.0-0.2); BASO % 1.3 % (0.0-2.0); EOS # 0.4 (0.0-0.7); EOS % 5.1 % (0-4.0); GRAN # 4.9 (1.4-6.5); GRAN % 69.3 % (42.2-75.2); HEMOGLOBIN 10.8 g/dl (13.5-18.0); LYMPH # 0.9 (1.2-3.4); MEAN CELL VOLUME 96 fl (80.0-100.0); MEAN CORPUSCULAR HEMOGLOBIN 31 pg (27.0-31.0); MEAN CORPUSCULAR HGB CONC 32 g/dl (33.0-37.0); MEAN PLATELET VOLUME 10.7 fl (7.4-10.4); MONO # 0.8 (0.1-0.6); PLATELET COUNT 209 K/mm3 (130-400); RED BLOOD COUNT 3.51 M/mm3 (4.20-5.60); REDCELL DISTRIBUTION WIDTH-CV 15.7 % (11.5-14.5)
[2018-07-02 07:45] LABS: HEMATOCRIT 33.7 % (42.0-52.0)
[2018-07-02 07:52] LABS: CALCIUM 9.9 mg/dL (8.4-10.2)
[2018-07-02 07:57] LABS: CREATININE, serum 6.74 (0.66-1.25); POTASSIUM 5.8 mmol/L (3.4-5.0)
--- NOTE | 2018-07-02 11:05 | NUR ---
Plan: To return home to his apartment. Assessment: Patient reports that he lives independently in an apartment. Patient reports that he is recently using a wheelchair to get around and has a walker and can. Patient reprts that he uses [employer] [facility] for transportation or his brother, PCP is Dr. Lock at the [facility]. Patient reports that he uses [facility] with the [facility] and meds are mailed to him. Patient indicated that he has an anthony with PCP late July for GI check. Patient reports that he was working with his PCP to get into [facility] for Rehab but working with DC. Patient indicated this was two months ago. Action: Awaiting PT/OT screen to see recommendations. FRAN called [facility] and left message for Omero to call back and find out what happened in the process.
[2018-07-02 11:11] VITALS: BP 128/75; PULSE 91; TEMP 98.5
[2018-07-02 17:50] VITALS: BP 129/72; PULSE 84; TEMP 98
--- NOTE | 2018-07-02 19:33 | NUR ---
Report given to MAICO Silverman to resume care.
[2018-07-02 19:40] VITALS: BP 137/85; PULSE 88; TEMP 98.1
[2018-07-03] VITALS (7 sets, daily range): BP systolic 118–145; BP diastolic 67–869; PULSE 78–94; TEMP 97.5–98.1
--- NOTE | 2018-07-03 05:44 | NUR ---
PT HAD UNEVENTFUL NOC. PT TOOK A SHOWER THIS HS. ADMINISTERED PRN MEDICATION NEEDED. HAD SOME NAUSEA AT SHIFT CHANGED, REFUSED ZOFRAN AT THAT TIME. PT DID HAVE ONE EMISIS THIS NOC, REFUSED ZOFRAN AT THAT TIME WELL. STATED THAT IT DOESNT HELP AT ALL. NO OTHER ISSUES NOTED.
[2018-07-03 06:27] LABS: BASO # 0.1 (0.0-0.2); BASO % 1.2 % (0.0-2.0); EOS # 0.4 (0.0-0.7); EOS % 6.2 % (0-4.0); GRAN # 4.6 (1.4-6.5); GRAN % 68.4 % (42.2-75.2); HEMOGLOBIN 11.5 g/dl (13.5-18.0); MEAN CELL VOLUME 98 fl (80.0-100.0); MEAN CORPUSCULAR HEMOGLOBIN 31 pg (27.0-31.0); MEAN CORPUSCULAR HGB CONC 32 g/dl (33.0-37.0); MEAN PLATELET VOLUME 10.4 fl (7.4-10.4); MONO # 0.6 (0.1-0.6); MONO % 8.9 % (1.7-9.3); PLATELET COUNT 222 K/mm3 (130-400); RED BLOOD COUNT 3.71 M/mm3 (4.20-5.60); REDCELL DISTRIBUTION WIDTH-CV 15.9 % (11.5-14.5)
[2018-07-03 06:30] LABS: HEMATOCRIT 36.2 % (42.0-52.0)
[2018-07-03 06:35] LABS: CALCIUM 10.5 mg/dL (8.4-10.2)
[2018-07-03 06:56] LABS: CREATININE, serum 7.7 (0.66-1.25)
--- NOTE | 2018-07-03 09:04 | NUR ---
Assessment completed, alert/oriented, vital signs stable, reports some chronic pain and requested Low[place] tablet, abdomen is large and distended/ but non-tender, they have completed and ECHO on his this and report poor LV funciton with low EF%, heart RRR, some mild edema to his legs, lungd diminished, his creat is 7 and potassium is 6 this morning/ APPLIANCE SALES ASSOCIATE and myself have just taken him down to [facility] room 18 for dialysis at this time
--- NOTE | 2018-07-03 14:00 | NUR ---
Patient is going down for a ultrasound guided paracetesis at this time, Consent signed
[2018-07-03 15:50] LABS: PERITONEAL -POLYMORPHONUCLEAR 6.5 % (0-25); PERITONEAL FLUID RBC 2000 /mm3 (0-0)
--- NOTE | 2018-07-03 16:08 | NUR ---
patiant arrived back from his Paracentesis in radiology, he is alert/oriented, vital signs stable, puncture site looks good/ no bleeding or drainange
--- NOTE | 2018-07-03 17:28 | NUR ---
8.5 L. of fluid removed from Paracentesis , patient reports feeling much better, vital signs stable
--- NOTE | 2018-07-03 19:45 | NUR ---
Shift assessment complete. Pt resting in bedside recliner, awake, a&o, cooperative c cares. Pt denies pain or any other c/o at this time. INT patent. HD AVF noted to L forearm, strong bruit/thrill. Tele in place. Pt denies needs. Call light in reach, will monitor.
[2018-07-04 04:15] VITALS: BP 124/74; PULSE 90; TEMP 98.1
[2018-07-04 06:12] LABS: BASO # 0.1 (0.0-0.2); EOS # 0.4 (0.0-0.7); EOS % 5.8 % (0-4.0); GRAN # 5.3 (1.4-6.5); GRAN % 72.9 % (42.2-75.2); HEMOGLOBIN 11.3 g/dl (13.5-18.0); LYMPH # 0.8 (1.2-3.4); MEAN CELL VOLUME 98 fl (80.0-100.0); MEAN CORPUSCULAR HEMOGLOBIN 31 pg (27.0-31.0); MEAN CORPUSCULAR HGB CONC 32 g/dl (33.0-37.0); MEAN PLATELET VOLUME 10.7 fl (7.4-10.4); MONO # 0.7 (0.1-0.6); MONO % 8.9 % (1.7-9.3); PLATELET COUNT 224 K/mm3 (130-400); RED BLOOD COUNT 3.63 M/mm3 (4.20-5.60); REDCELL DISTRIBUTION WIDTH-CV 15.7 % (11.5-14.5)
[2018-07-04 06:15] LABS: HEMATOCRIT 35.5 % (42.0-52.0)
[2018-07-04 06:22] LABS: CALCIUM 10.3 mg/dL (8.4-10.2)
[2018-07-04 06:27] LABS: CREATININE, serum 5.94 (0.66-1.25)
[2018-07-04 06:28] LABS: POTASSIUM 5.9 mmol/L (3.4-5.0)
--- NOTE | 2018-07-04 07:43 | NUR ---
Assessment completed, alert/oriented, resting quietly, vital signs have been stable, abdomen distention is much less after having paracentesis yesterday, report feeling much better and no more nausea with all the pressure removed, lungs CTA/ diminished in bases, potassium 5.9 today, heart RRR/distal pulses are palapble, denies other needs at this time
[2018-07-04 11:40] VITALS: BP 154/71; PULSE 52; TEMP 98.3
--- NOTE | 2018-07-04 15:39 | NUR ---
FRAN and SW student met with the patient to review discharge plan. The patient reports that Dr. Nino is recommending that the patient go to SNF. The patient reports that he would be agreeable to SNF. FRAN presented and explained the patient choice form. The patient preferred [facility]. He states that [facility] now. Patient choice form signed by the patient and he was provided a copy. FRAN contacted and faxed a referral to Omero at [facility]. SW awaiting their screening. Financial counselor, Shamika, informed FRAN that the patient does have Medicare and that it was added to his account.
[2018-07-04 16:49] VITALS: BP 112/57; PULSE 86; TEMP 98.1
[2018-07-04 20:58] VITALS: BP 108/65; PULSE 93; TEMP 98.6
--- NOTE | 2018-07-04 21:40 | NUR ---
PT RESTING IN BED A+OX4. reports 5/10 pain, prn pain meds given. no soa. upper left arm fistula- bruit and thrill noted, placido DIETRICH. shift assessment complete. no concerns. IV flushes well, no pain, no swelling. pt reports no needs at this time, call light in reach
[2018-07-05 00:02] VITALS: BP 115/69; PULSE 92; TEMP 98.6
[2018-07-05 02:57] VITALS: BP 116/74; PULSE 92; TEMP 98.3
--- NOTE | 2018-07-05 05:07 | NUR ---
pt had an uneventful night. pain 5/10 throughout night , prn meds given. SCDs worn throughout night. no needs at this time. call light in reach
[2018-07-05 06:57] LABS: BASO # 0.1 (0.0-0.2); EOS # 0.4 (0.0-0.7); EOS % 5.7 % (0-4.0); GRAN # 5.2 (1.4-6.5); GRAN % 71.7 % (42.2-75.2); HEMOGLOBIN 10.8 g/dl (13.5-18.0); LYMPH # 0.9 (1.2-3.4); LYMPH % 12.7 % (20.0-51.0); MEAN CELL VOLUME 99 fl (80.0-100.0); MEAN CORPUSCULAR HEMOGLOBIN 31 pg (27.0-31.0); MEAN CORPUSCULAR HGB CONC 31 g/dl (33.0-37.0); MEAN PLATELET VOLUME 10.2 fl (7.4-10.4); MONO # 0.6 (0.1-0.6); MONO % 8.6 % (1.7-9.3); PLATELET COUNT 210 K/mm3 (130-400); RED BLOOD COUNT 3.52 M/mm3 (4.20-5.60); REDCELL DISTRIBUTION WIDTH-CV 15.9 % (11.5-14.5)
--- NOTE | 2018-07-05 06:57 | NUR ---
report given to MAICO Bryant. no needs at this time. call light in reach
[2018-07-05 06:59] LABS: HEMATOCRIT 34.7 % (42.0-52.0)
[2018-07-05 07:15] LABS: CALCIUM 9.6 mg/dL (8.4-10.2); CREATININE, serum 4.58 (0.66-1.25); POTASSIUM 5.6 mmol/L (3.4-5.0)
--- NOTE | 2018-07-05 07:15 | NUR ---
Report received from MAICO Serrano. PT in bed resting, denies needs, will contineu to [facility].
[2018-07-05 07:36] VITALS: BP 124/77; PULSE 101; TEMP 98.7
--- NOTE | 2018-07-05 10:57 | NUR ---
Called dialysis nurse and no plan for dialysis today, it will be tomorrow. Pt in wheelchair at side of bed eating breakfast. Updated on plan. RLQ dressing site CDI. Feeling well. Denies needs, will continue to monitor.
[2018-07-05 11:47] VITALS: BP 136/76; PULSE 100; TEMP 97.6
--- NOTE | 2018-07-05 13:59 | NUR ---
FRAN collaborated with the patient's attending, Dr Nino. Dr. Nino informed SW that he would prefer [facility] for the patient. A referral was made to [facility] Director, Mellisa. Mellisa reports that they are unable to accept the patient, due to him being too functional. SW to update the patient and Dr. Nino and continue to follow.
[2018-07-05 16:26] VITALS: BP 108/62; PULSE 92; TEMP 98.3
--- NOTE | 2018-07-05 18:17 | NUR ---
Pt resting in wheelchair at side of bed for most of day, to bed this afternoon for a nap. UP ambulating around floor with PT today. PRN pain meds givenx1 for generalized aches. Will give bedside shift report to nightshift nurse who will resume care.
[2018-07-05 19:31] VITALS: BP 118/63; PULSE 94; TEMP 98.2
--- NOTE | 2018-07-05 21:40 | NUR ---
pt resting in bed. reports some pain, prn meds given- reports relief. A+Ox4. IV flushes well, no redness, no swelling. flistula to the left upper arm- bruit an thrill noted. no SOA. no edama noted. no needs at this time call light in reach
[2018-07-06] VITALS (7 sets, daily range): BP systolic 105–137; BP diastolic 65–90; PULSE 91–115; TEMP 97.2–98.7
--- NOTE | 2018-07-06 05:03 | NUR ---
pt had an uneventful night. reports pain during night, prn pain meds given at request. no needs at this time. call light in reach
--- NOTE | 2018-07-06 07:13 | NUR ---
report given to MAICO Love. pt wore SCD during night
[2018-07-06 09:14] LABS: HEMOGLOBIN 10.6 g/dl (13.5-18.0); MEAN CELL VOLUME 97 fl (80.0-100.0); MEAN CORPUSCULAR HEMOGLOBIN 31 pg (27.0-31.0); MEAN CORPUSCULAR HGB CONC 32 g/dl (33.0-37.0); MEAN PLATELET VOLUME 10.3 fl (7.4-10.4); PLATELET COUNT 222 K/mm3 (130-400); RED BLOOD COUNT 3.39 M/mm3 (4.20-5.60); REDCELL DISTRIBUTION WIDTH-CV 15.6 % (11.5-14.5)
[2018-07-06 09:22] LABS: CALCIUM 9.8 mg/dL (8.4-10.2); CREATININE, serum 4.58 (0.66-1.25); POTASSIUM 5.2 mmol/L (3.4-5.0)
[2018-07-06 09:31] LABS: ANISOCYTOSIS 1+; EOSINOPHIL 8 % (0-4); LYMPHOCYTE 9 % (20.0-51.0); MYELOCYTE 1 % (0-0); NEUTROPHILS 77 % (42.0-75.2); OVALOCYTES 2+; PLATELET ESTIMATE NORMAL (NORMAL)
--- NOTE | 2018-07-06 10:37 | NUR ---
The patient's nurse informed FRAN that Dr. Nino would like to look at the option of [facility] for the patient. FRAN then met with the patient and discussed the option. The patient reports that he would be agreeable to 1) [facility] 2) [facility]. FRAN contacted and faxed a referral to Demetria at [facility]. SW awaiting their screening. FRAN contacted Omero at [facility]. Omero reports that they are waiting to see if their medical oncology physician will follow the patient while there. SW to continue to follow.
--- NOTE | 2018-07-06 12:35 | NUR ---
Demetria, at [facility], reports that they can accept the patient for a skilled stay. SW informed the patient and he is agreeable to go there. SW presented and explained the IM form to the patient. The patient verbalized understanding, signed, and he was provided a copy.
--- NOTE | 2018-07-06 13:20 | NUR ---
SW student was informed by the patients nurse that his discharge orders were canceled for today due to the doctor needing to finalize the patients medication lists. FRAN informed the patient about the changes and left a voicemail with Demetria at [facility]. FRAN to continue to follow.
--- NOTE | 2018-07-06 17:09 | NUR ---
Patient is sitting up in wheelchair in room. States he is having some pain but is tolerable at this time. Stated he had a good nap. Personal items and call light are within reach.
--- NOTE | 2018-07-06 22:00 | NUR ---
Initial shift assessment done- states pain to neck/headache 09/06,, requesting MOrphine IV and Tylenol- also wants PRN Trazadone for sleep-- will give as ordered. Up in wheelchair this evening- watching some TV, Tele on, VSS
[2018-07-07 05:05] VITALS: PULSE 71
--- NOTE | 2018-07-07 05:32 | NUR ---
Quiet night- Has been sleeping since about MN- Tele on
--- NOTE | 2018-07-07 07:05 | NUR ---
Received report. Went to see patient and he is observed laying on left side with eyes closed. Respirations are even and non labored. Call light is within reach.
[2018-07-07 07:31] VITALS: BP 116/68; PULSE 88; TEMP 97.6
--- NOTE | 2018-07-07 11:12 | NUR ---
The patient is to discharge today, 07/07, to [facility] for a skilled stay. Transportation was set for around 1300, via [facility]. SW informed the patient and patient's nurse. They were both in agreeance. The IM form was presented to the patient on 07/06. No additional needs at this time.
--- NOTE | 2018-07-07 13:50 | NUR ---
Patient discharged to [facility]. Report called. Belongings sent with patient.
== END 2018-07-07 13:50 | DRG 640 ==
LOC: COL.ER 16:21 → ICU 17:31 → MEDICAL 17:31 → IMCU 18:21 → ICU 19:38 → MEDICAL 21:17
PROVIDERS: Emergency Medicine; Internal Medicine Nephrology; ADMIT Internal Medicine
PROC: 5A1D70Z Performance of Urinary Filtration, Intermittent, Less than 6 Hours Per Day (ICD-10-PCS; principal; 2018-06-30)
DX: E87.79 Other fluid overload (principal); N18.6 End stage renal disease; I12.0 Hypertensive chronic kidney disease with stage 5 chronic kidney disease or end stage renal disease; I31.3 Pericardial effusion (noninflammatory); R18.8 Other ascites; N25.81 Secondary hyperparathyroidism of renal origin; E11.22 Type 2 diabetes mellitus with diabetic chronic kidney disease; Z99.2 Dependence on renal dialysis; Z91.15 Patient's noncompliance with renal dialysis; Z89.421 Acquired absence of other right toe(s); F17.210 Nicotine dependence, cigarettes, uncomplicated; D63.1 Anemia in chronic kidney disease; K72.90 Hepatic failure, unspecified without coma; K74.60 Unspecified cirrhosis of liver; G89.29 Other chronic pain; E87.5 Hyperkalemia
CPT/HCPCS: J0610; J0882; J1644; J1815; J2270; J2405; J2501; J7030

== ENCOUNTER → 2018-07-20 | Outpatient (CLI) | payer MEDICARE ==
[~2018-07-20] VITALS: Ht 182.9 cm; Wt 77.0 kg
[~2018-07-20] MED LIST changes: +GLUCOTROL XL2.5 MG; +LIPITOR20 MG; +REGLAN 5MG T5 MG/TAB PO
[2018-07-20 13:50] VITALS: BP 128/84; PULSE 90
[2018-07-20 15:19] VITALS: BP 137/81; PULSE 100
--- NOTE | 2018-07-20 15:35 | NUR ---
staff ambulated with pt downstairs to lobby to await ride from [facility]
== END ==
LOC: COL.RAD 13:04
DX: R18.8 Other ascites (principal)

== ENCOUNTER 2018-09-07 18:55 | Inpatient (IN) | payer MEDICARE, MEDICAID ==
[~2018-09-07] VITALS: Ht 182.9 cm; Wt 81.6 kg
[~2018-09-07 18:55] MED LIST changes: -GLUCOTROL XL2.5 MG; +GLUCOTROL XL2.5 MG PO; -LIPITOR20 MG; +LIPITOR20 MG PO
[2018-09-07 19:33] LABS: BASO # 0.1 (0.0-0.2); BASO % 0.6 % (0.0-2.0); EOS # 0.2 (0.0-0.7); EOS % 1.9 % (0-4.0); GRAN % 78.1 % (42.2-75.2); HEMOGLOBIN 10.1 g/dl (13.5-18.0); LYMPH # 0.8 (1.2-3.4); LYMPH % 10.4 % (20.0-51.0); MEAN CELL VOLUME 96 fl (80.0-100.0); MEAN CORPUSCULAR HEMOGLOBIN 30 pg (27.0-31.0); MEAN CORPUSCULAR HGB CONC 32 g/dl (33.0-37.0); MEAN PLATELET VOLUME 10.1 fl (7.4-10.4); MONO # 0.7 (0.1-0.6); MONO % 8.7 % (1.7-9.3); PLATELET COUNT 267 K/mm3 (130-400); RED BLOOD COUNT 3.32 M/mm3 (4.20-5.60); REDCELL DISTRIBUTION WIDTH-CV 14.6 % (11.5-14.5)
[2018-09-07 19:37] LABS: HEMATOCRIT 31.9 % (42.0-52.0)
[2018-09-07 19:46] LABS: ALANINE AMINOTRANSFERASE 6 U/L (21-72); ALBUMIN 3.8 gm/dL (3.5-5.0); ALKALINE PHOSPHATASE 210 U/L (50-136); ANION GAP 15 mmol/L (7-16); AST,SGOT 24 U/L (15-37); BILIRUBIN,TOTAL 0.9 mg/dL (0.0-1.0); BLOOD UREA NITROGEN 70 mg/dL (9-20); C-REACTIVE PROTEIN 2.8 mg/dL (0.0-0.9); CALCIUM 9.6 mg/dL (8.4-10.2); CARBON DIOXIDE 27 mmol/L (22-30); CHLORIDE 91 mmol/L (98-107); GLUCOSE 153 mg/dL (74-106); LIPASE 260 U/L (23-300); MAGNESIUM 2.2 mg/dL (1.6-2.3); PHOSPHOROUS 3.7 mg/dL (2.5-4.5); SODIUM 133 mmol/L (137-145); TOTAL PROTEIN 7.9 gm/dL (6.4-8.2)
[2018-09-07 19:53] LABS: CREATININE, serum 4.66 (0.66-1.25)
[2018-09-07 19:54] LABS: POTASSIUM 5.8 mmol/L (3.4-5.0)
[2018-09-07 19:56] LABS: TROPONIN-I < 0.012 ng/mL (0.000-0.035)
[2018-09-07] MEDS ORDERED: NORCO 325 MG-51 TAB PO (22:11)
[2018-09-07] MEDS ORDERED: EFFEXOR XR75 MG/CAP PO (22:22)
[2018-09-07] MEDS ORDERED: VITAMIN E1000 U/CAP PO (22:24)
[2018-09-07] MEDS ORDERED: PROVENTIL0.09 MG/A1 IH (22:26)
[2018-09-07] MEDS ORDERED: NICODERM C14 MG/PATC TD (22:27)
[2018-09-07] MEDS ORDERED: ZANTAC 150MG T150 MG PO ×2 (22:28)
[2018-09-07] MEDS ORDERED: IMODIUM A-D2 MG PO (22:31)
[2018-09-07] MEDS ORDERED: SIMETHICONE80 MG PO (22:32)
[2018-09-07] MEDS ORDERED: MYLICON 8080 MG/TAB. PO (22:33)
[2018-09-07 22:50] VITALS: BP 108/66; PULSE 77; TEMP 98.9
[2018-09-08 03:28] VITALS: BP 117/69; PULSE 79; TEMP 97.5
--- NOTE | 2018-09-08 05:46 | NUR ---
Has not slept at all tonight- VSS, has been medicated for abd pain x2 with oxycodone, also had zofran IV x1 for nausea, SCD,s on , has had numerous little requests, very pleasant- drinking some coffee now- understands ablout fluid restriction
[2018-09-08 07:41] LABS: HEMOGLOBIN 10.5 g/dl (13.5-18.0); MEAN CELL VOLUME 96 fl (80.0-100.0); MEAN CORPUSCULAR HEMOGLOBIN 30 pg (27.0-31.0); MEAN CORPUSCULAR HGB CONC 32 g/dl (33.0-37.0); MEAN PLATELET VOLUME 10.4 fl (7.4-10.4); PLATELET COUNT 259 K/mm3 (130-400); RED BLOOD COUNT 3.46 M/mm3 (4.20-5.60); REDCELL DISTRIBUTION WIDTH-CV 14.4 % (11.5-14.5)
[2018-09-08 07:51] LABS: HEMATOCRIT 33.2 % (42.0-52.0)
--- NOTE | 2018-09-08 08:00 | NUR ---
PATIENT IS RESTING IN BED. PATIENT IS A&O. GENERALIZED WEAKNESS NOTED. VSS. SHALLOW BREATHING NOTED. PATIENT HAS SOB AND DYSPNEA AT REST. BOWEL SOUNDS ACTIVE ALL FOUR QUADRANTS. ABDOMEN IS DISTENDED AND FIRM TO PALPATION. PATIENT STATES THAT HE FEELS NAUSTEATED, BUT DENIES THE NEED FOR MEDICATION AT THIS TIME. POSITIVE PEDAL PULSES EQUAL BILATERALLY. EDEMA TO BILATERAL FEET NOTED. DIFFUSE BRUISING, SCABS AND SKIN TEARS NOTED OVER BODY IN VARIOUS STAGES OF HEALING. NUMEROUS SKIN TEARS AND SCABS COVERED WITH BANDAIDS. AV FISTULA TO LUE. AV FISTULA BULDGING. GOOD BRUIT AND THRILL. STRONG PULSES PALPATED BILATERALLY. RIGHT FOREARM TO INT. CALL LIGHT WITHIN REACH. PATIENT DENIES ANY OTHER NEEDS AT THIS TIME.
[2018-09-08 08:06] VITALS: BP 106/78; PULSE 74; TEMP 97.8
[2018-09-08 08:06] LABS: ALBUMIN 3.6 gm/dL (3.5-5.0); CALCIUM 9.7 mg/dL (8.4-10.2)
[2018-09-08 08:16] LABS: CREATININE, serum 5.44 (0.66-1.25)
[2018-09-08 08:17] LABS: POTASSIUM 6.1 mmol/L (3.4-5.0)
[2018-09-08 08:26] LABS: PHOSPHOROUS 4.3 mg/dL (2.5-4.5)
--- NOTE | 2018-09-08 08:32 | NUR ---
DR. IBARRA NOTIFIED OF ELEVATED POTASSIUM LEVEL OF 6.1. PATIENT DIALYIZING THIS AFTERNOON. NO ORDERS GIVEN AT THIS TIME.
--- NOTE | 2018-09-08 12:13 | NUR ---
PATIENT STATES THAT HE FEELS NAUSEATED AND BEGAN DRY HEAVING. PATIENT GIVEN GREEN EMESIS BAG AND ONE DOSE OF IV ZOFRAN. NO OTHER NEEDS AT THIS TIME.
[2018-09-08 12:19] VITALS: BP 113/80; PULSE 88; TEMP 98.3
--- NOTE | 2018-09-08 13:34 | NUR ---
PATIENT GIVEN IV MORPHINE FOR PAIN RATED AT A 5/10 ON A 0-10 SCALE PRIOR TO PARACENTESIS. CONSENT FORM SIGNED AND ON PATIENT CHART. PATIENT TAKEN FOR PROCEDURE BY RADIOLOGY VIA WHEELCHAIR. WILL WAIT FOR PATIENT ARRIVAL BACK TO ROOM 353.
--- NOTE | 2018-09-08 14:55 | NUR ---
PATIENT ARRIVED BACK TO ROOM 353 VIA WHEELCHAIR FROM PARACENTESIS. PATIENT SETTELED INTO ROOM. NO OTHER NEEDS AT THIS TIME.
--- NOTE | 2018-09-08 15:00 | NUR ---
REPORT GIVEN TO MAICO HIGH.
--- NOTE | 2018-09-08 17:12 | NUR ---
SW attempted to meet with the patient. The patient was not in his room. SW to follow up with the patient tomorrow, 09/09.
--- NOTE | 2018-09-08 18:27 | NUR ---
Patient is currently in dialysis.
--- NOTE | 2018-09-08 18:55 | NUR ---
Administered patient PRN morphine for 8/[address] Was instructed by Dr[address] Nino to administer lowest dose as his blood pressures are soft. Patient stated i should throw it away as 1 mg [address] Nino talked with patient and he agreed to take the medication and Dr. Nino also told paient he could have another 2 mg morphine when he returned to floor if his blood pressure improves. Reported this to Jory NINA.
[2018-09-08 20:19] VITALS: BP 115/56; PULSE 86; TEMP 97.9
[2018-09-08 23:14] VITALS: BP 132/76; PULSE 95; TEMP 98.6
[2018-09-09 03:44] VITALS: BP 114/71; PULSE 77; TEMP 98.7
[2018-09-09 07:39] LABS: HEMOGLOBIN 10.9 g/dl (13.5-18.0); MEAN CELL VOLUME 98 fl (80.0-100.0); MEAN CORPUSCULAR HEMOGLOBIN 30 pg (27.0-31.0); MEAN CORPUSCULAR HGB CONC 30 g/dl (33.0-37.0); MEAN PLATELET VOLUME 10.4 fl (7.4-10.4); PLATELET COUNT 264 K/mm3 (130-400); RED BLOOD COUNT 3.65 M/mm3 (4.20-5.60); REDCELL DISTRIBUTION WIDTH-CV 14.5 % (11.5-14.5)
[2018-09-09 07:41] LABS: HEMATOCRIT 35.8 % (42.0-52.0)
[2018-09-09 07:56] LABS: ALBUMIN 3.6 gm/dL (3.5-5.0); CALCIUM 9.6 mg/dL (8.4-10.2); CREATININE, serum 3.79 (0.66-1.25); PHOSPHOROUS 4.4 mg/dL (2.5-4.5); POTASSIUM 5.2 mmol/L (3.4-5.0)
[2018-09-09 08:41] VITALS: BP 100/72; PULSE 73; TEMP 97.5
--- NOTE | 2018-09-09 09:45 | NUR ---
Assessment complete. Patient A&Ox4. Reporting pain in lower back and abdomen, pain medication given when requested. VSS. IV CDI. SCD bilateral legs. Bandaids on over body from skin tears, abrasions and patient scratching. PAtient is putting bandaids on. No further needs expressed from patient. PAtient walking hallway and using wheelchair as needed. Call light within reach
--- NOTE | 2018-09-09 11:33 | NUR ---
Visited, listened, and provided spiritual care.
[2018-09-09 16:18] VITALS: BP 96/58; PULSE 77; TEMP 97.3
--- NOTE | 2018-09-09 17:23 | NUR ---
Patient has had an uneventful day. Has been using his wheelchair in the hallways without any difficulty. A&Ox4, reporting pain in back, pain medication given when requested. IV CDI. VSS. BP has been hypotensive and asymptomatic. No further needs expressed from patient. Call light within reach
--- NOTE | 2018-09-09 20:59 | NUR ---
PT SLEEPING/RESTING IN BED. PT VERY TOUCHY SLEEPER, MADE SURE THAT GENTLY AWAKENED HIM AND HE WAS NOT STARTLED. PT DENIED PAIN OR DISCOMFORT. PT HAD MULTIPLE BANDAIDS ALL OVER, BECAUSE PT SCRATCHES SELF. PT HAS NO NEEDS AT THIS TIME. CALL LIGHT WITHIN REACH.
[2018-09-09 21:25] VITALS: BP 104/62; PULSE 70; TEMP 97.5
[2018-09-10] VITALS (8 sets, daily range): BP systolic 81–121; BP diastolic 41–72; PULSE 74–86; TEMP 97.3–98.6
--- NOTE | 2018-09-10 06:34 | NUR ---
UNEVENFUL NIGHT, PT SLEPT MOST OF NIGHT AND WOKE UP WITH PAIN THAT WAS A 2 TO 3. PT REQUESTED MORPHINE. PT GIVEN MORPHINE 1MG IV PUSH FOR PAIN. NO FURTHER NEEDS, CALL LIGHT WITHIN REACH.
[2018-09-10 08:44] LABS: HEMOGLOBIN 10.7 g/dl (13.5-18.0); MEAN CELL VOLUME 98 fl (80.0-100.0); MEAN CORPUSCULAR HEMOGLOBIN 31 pg (27.0-31.0); MEAN CORPUSCULAR HGB CONC 31 g/dl (33.0-37.0); MEAN PLATELET VOLUME 9.9 fl (7.4-10.4); PLATELET COUNT 253 K/mm3 (130-400); REDCELL DISTRIBUTION WIDTH-CV 14.5 % (11.5-14.5)
[2018-09-10 09:10] LABS: ALBUMIN 3.2 gm/dL (3.5-5.0); CALCIUM 9.6 mg/dL (8.4-10.2); PHOSPHOROUS 4.8 mg/dL (2.5-4.5)
[2018-09-10 09:16] LABS: HEMATOCRIT 34.3 % (42.0-52.0)
[2018-09-10 09:19] LABS: CREATININE, serum 5.52 (0.66-1.25); POTASSIUM 5.8 mmol/L (3.4-5.0)
--- NOTE | 2018-09-10 13:28 | NUR ---
Nurse aide reported pt's BP was running low. Pt's blood pressure rechecked manually on right arm and BP 110/72. Pt denies any SOB or chest pain or dizziness. Pt has call light in reach and denies needs at this time.
--- NOTE | 2018-09-10 16:40 | NUR ---
Pt requested morphine for pain rated 7/10 all over. Pt given Morphine as ordered via IV over 3min. Pt had one episode of emesis 10min later. Pt states he does not feel nauseasous but sometimes he just dry heaves but this time it was productive. Pt had on emesis bag full of emesis but states feels better now and denies nausea. Pt had nile zuniga at bedside that was brought in by his brother. Nile zuniga was put in patients' bin for labeling but pt was not happy about it. Pt has call light in reach and denies needs at this time. Pt encouraged to have snack or eat before anymore medication. Pt agrees.
--- NOTE | 2018-09-10 19:40 | NUR ---
PT IN RECLINER WATCHING TV. A/O X4 AND ADVISED HAS PAIN IN RIGHT HIP RATED AT A 4/10, GAVE ROXYCODONE FOR PAIN REQUESTED. NO FURTHER NEEDS CALL LIGHT WITHIN REACH.
--- NOTE | 2018-09-11 01:40 | NUR ---
PT SLEEPING/RESTING IN BED WITH RESP EVEN AND UNLABORED AND NO S/S OF PAIN OR DISCOMFORT NOTED. CALL LIGHT WITHIN REACH.
[2018-09-11 04:10] VITALS: BP 91/53; PULSE 64; TEMP 97.6
[2018-09-11 06:06] LABS: MEAN CELL VOLUME 95 fl (80.0-100.0); MEAN CORPUSCULAR HEMOGLOBIN 30 pg (27.0-31.0); MEAN CORPUSCULAR HGB CONC 31 g/dl (33.0-37.0); MEAN PLATELET VOLUME 10.2 fl (7.4-10.4); PLATELET COUNT 243 K/mm3 (130-400); RED BLOOD COUNT 3.67 M/mm3 (4.20-5.60); REDCELL DISTRIBUTION WIDTH-CV 14.3 % (11.5-14.5)
[2018-09-11 06:26] LABS: ALBUMIN 3.3 gm/dL (3.5-5.0); CALCIUM 9.4 mg/dL (8.4-10.2); PHOSPHOROUS 4.8 mg/dL (2.5-4.5); POTASSIUM 5.5 mmol/L (3.4-5.0)
[2018-09-11 06:44] LABS: CREATININE, serum 6.66 (0.66-1.25)
--- NOTE | 2018-09-11 07:41 | NUR ---
PT AWAKEN AROUND 0600 AND REQUESTED ROXYCODONE FOR LEG SPASMS. MEDICATION GIVEN TO HIM REQUESTED. PT CARE HANDED OVER TO PRINCESS.
--- NOTE | 2018-09-11 08:07 | NUR ---
received report from MAICO Ramirez.
--- NOTE | 2018-09-11 10:40 | NUR ---
report from Frantz NINA.
--- NOTE | 2018-09-11 11:42 | NUR ---
PT RETURNED TO FLOOR TO DISCHARGE HOME.
--- NOTE | 2018-09-11 12:11 | NUR ---
discharge instructions reviewed with patient, took patient to front via wheel chair waiting for ride.
--- NOTE | 2018-09-11 12:13 | NUR ---
pt c/o not having jon mccarty returned. two bottles found in belongings, pt states that prior staff took a bottle and did not return it. looked in pt bin in med room and called pharmacy, nothing was found.
== END 2018-09-11 12:10 | disposition home or self-care (01) | DRG 682 ==
LOC: COL.ER 18:55 → MEDICAL 20:13
PROVIDERS: Emergency Medicine; ADMIT Internal Medicine Nephrology
PROC: 5A1D70Z Performance of Urinary Filtration, Intermittent, Less than 6 Hours Per Day (ICD-10-PCS; principal; 2018-09-08)
PROC: 0W9G3ZZ Drainage of Peritoneal Cavity, Percutaneous Approach (ICD-10-PCS; 2018-09-08)
DX: I12.0 Hypertensive chronic kidney disease with stage 5 chronic kidney disease or end stage renal disease (principal); N18.6 End stage renal disease; E43 Unspecified severe protein-calorie malnutrition; R18.8 Other ascites; Z99.2 Dependence on renal dialysis; E11.22 Type 2 diabetes mellitus with diabetic chronic kidney disease; E11.40 Type 2 diabetes mellitus with diabetic neuropathy, unspecified; E11.319 Type 2 diabetes mellitus with unspecified diabetic retinopathy without macular edema; K72.90 Hepatic failure, unspecified without coma; K74.60 Unspecified cirrhosis of liver; Z89.421 Acquired absence of other right toe(s); E78.5 Hyperlipidemia, unspecified; Z68.24 Body mass index [BMI] 24.0-24.9, adult
CPT/HCPCS: J0882; J1644; J2270; J2405; J3010; J7030

== ENCOUNTER 2018-10-09 16:36 | Inpatient (IN) | payer MEDICARE ==
[~2018-10-09] VITALS: Ht 182.9 cm; Wt 76.0 kg
[~2018-10-09 16:36] MED LIST changes: +EFFEXOR XR75 MG/CAP PO; +IMODIUM A-D2 MG PO; +MYLICON 8080 MG/TAB. PO; +PROVENTIL0.09 MG/A1 IH; +SIMETHICONE80 MG PO
[2018-10-09 17:47] LABS: BASO # 0.1 (0.0-0.2); BASO % 1.3 % (0.0-2.0); EOS # 0.2 (0.0-0.7); EOS % 2.3 % (0-4.0); GRAN # 5.4 (1.4-6.5); GRAN % 72.3 % (42.2-75.2); HEMOGLOBIN 11.1 g/dl (13.5-18.0); LYMPH % 13.9 % (20.0-51.0); MEAN CELL VOLUME 94 fl (80.0-100.0); MEAN CORPUSCULAR HEMOGLOBIN 30 pg (27.0-31.0); MEAN CORPUSCULAR HGB CONC 32 g/dl (33.0-37.0); MONO # 0.7 (0.1-0.6); MONO % 9.8 % (1.7-9.3); PLATELET COUNT 281 K/mm3 (130-400); RED BLOOD COUNT 3.74 M/mm3 (4.20-5.60); REDCELL DISTRIBUTION WIDTH-CV 14.6 % (11.5-14.5)
[2018-10-09 17:49] LABS: HEMATOCRIT 35.1 % (42.0-52.0); INR 1.2 (0.8-3.0); PROTHROMBIN TIME 13.8 SECONDS (9.7-12.8)
[2018-10-09 17:52] LABS: PARTIAL THROMBOPLASTIN TIME 36.8 SECONDS (26.0-37.0)
[2018-10-09 18:03] LABS: ALBUMIN 3.9 gm/dL (3.5-5.0); C-REACTIVE PROTEIN 1.7 mg/dL (0.0-0.9); CALCIUM 9.8 mg/dL (8.4-10.2); CREATININE, serum 3.46 (0.66-1.25); POTASSIUM 5.2 mmol/L (3.4-5.0); TOTAL PROTEIN 8.3 gm/dL (6.4-8.2)
[2018-10-09 18:30] LABS: TROPONIN-I 0.037 ng/mL (0.000-0.035)
[2018-10-09 20:52] VITALS: BP 108/67; PULSE 108; TEMP 98.4
--- NOTE | 2018-10-09 21:00 | NUR ---
PT ARRIVED TO UNIT. A+OX4. REPORTS PAIN 5/10 IN ABD/BACK- PAIN MEDS ORDERED AND GIVEN. LUNGS CLEAR X4. TELE DC'D VIA DR IBARRA ORDER. HEART RRR. BOWEL SOUNDS HEARD THROUGHOUT ABD. IV TO THE RIGHT FA FLUSHES WELL, NO REDNESS, NO SWELLING. LEFT UPPER ARM FISTULA BRUIT AND THRILL NOTED. MED REC COMPLETE. DR. IBARRA NOTIFIED PT IS HERE- ORDERED MEDS, ACCUCHECK,AND DIET OVER THE PHONE. PT REPORTS NO NEEDS AT THIS TIME. CALL LIGHT INREACH
[2018-10-09 23:50] VITALS: BP 93/58; PULSE 100; TEMP 98.2
[2018-10-10 03:50] VITALS: BP 98/69; PULSE 97; TEMP 97.4
--- NOTE | 2018-10-10 05:00 | NUR ---
PT HAD AN UNEVENTFUL NIGHT. REPORTED 5/10 PAIN- PRN MORPHINE GIVEN- REPORTS RELIEF /. PT SLEPT HALF THE NIGHT. NO SOA. VSS. LUNGS CLEAR X4. BOWEL SOUNDS HEARD THROUGHOUT. ABD DISTENDED BUT SOFT. HEART RRR. MURMUR NOTED. PEDAL PULSES 1+ RADIAL PULSES 2+. LEFT UPPER ARM FISTULA BRUIT AND THRILL NOTED. REPORTED HAVING DIALYSIS 10/09/18 ON A Tuesday SCHEDULE. RIGHT SECOND TOE AMPUTATION NOTED. IV FLSUES WELL NO REDNESS, NO SWELLING. NO NEEDS AT THIS TIME. CALL LIGHT IN REACH
--- NOTE | 2018-10-10 06:46 | NUR ---
REPORT GIVEN TO MAICO HIGH
[2018-10-10 08:09] VITALS: BP 124/77; PULSE 109; TEMP 98.3
--- NOTE | 2018-10-10 08:10 | NUR ---
Patient was resting in bed, received call from dialysis nurse wanting him to come for treatment. Patient was notified and assisted to dialysis via wheelchair.
[2018-10-10 12:31] VITALS: BP 108/61; PULSE 101; TEMP 98
--- NOTE | 2018-10-10 16:14 | NUR ---
SW met with the patient to discuss discharge plan and to complete the Re-Admission Patient Interview. The patient discharged home from the hospital on 09/11. He states that things were going as usual and that he has been waiting to hear whether he will be approved for a kidney transplant. He states that he receives home based primary care and that his PCP, Dr. Sushma Woo, has met with him since his last discharge. The patient lives alone in [place]. He states that his brother, Damien Stauffer, lives in [place]. He reports independence with ADLs and has a cane, walker, and wheelchair. He states that he has primarily been using his walker. The patient's PCP is Dr. Sushma Woo and he receives his medications by the mail through the [facility]. He reports no difficulties obtaining his meds. The patient does not have advanced directives and he was not interested in completing them at this time. He states his next of kin is his brother, Damien Stauffer (ph#[phone]). The patient plans to return back home upon discharge. He states [facility] , [facility] and that [facility] 0730 to [facility] him up. No other identified needs at this time, but SW to continue to follow.
[2018-10-10 16:59] VITALS: BP 119/76; PULSE 54; TEMP 98.7
[2018-10-10 19:27] VITALS: BP 117/69; PULSE 54; TEMP 97.7
--- NOTE | 2018-10-10 19:45 | NUR ---
Report received from MAICO Love
--- NOTE | 2018-10-10 19:53 | NUR ---
Report given to oncoming shift.
--- NOTE | 2018-10-10 20:42 | NUR ---
Sitting in recliner. Assessment complete. Lungs clear. Heart sounds murmur heard. Bowels active x4. Pulses present throughout. No edema noted. INT right forearm without complications. Left upper arm fistula bruit and thrill present. Patient rating pain 3/10 in back. Provided with PRN morphine at this time. Several scabs and abrasions present to lower legs. Bandaides on shins, others open to air. Denies other needs at this. Call light in reach.
--- NOTE | 2018-10-10 20:58 | NUR ---
Patient reports anxiety and last dose of 3mg of morphine not taking pain and discomfort away. Provided with another 1mg of morphine. Dose range 1-4mg. Also providing with PRN xanax at this time
--- NOTE | 2018-10-11 00:30 | NUR ---
Provided with PRN morphine. Resting in bed. Denies other needs. Call light in reach.
[2018-10-11 00:36] VITALS: BP 111/84; PULSE 102; TEMP 98.4
[2018-10-11 04:26] VITALS: BP 104/62; PULSE 98; TEMP 98.2
--- NOTE | 2018-10-11 04:45 | NUR ---
Resting in bed. Provided with PRN morphine for pain. Denies other needs. Call light in reach.
--- NOTE | 2018-10-11 06:02 | NUR ---
Patient required pain control with PRN morphine throughout night and x1 dose of xanax for anxiety. Otherwise uneventful night. Awake most of the evening. Denies needs this AM. Call light in reach.
--- NOTE | 2018-10-11 07:33 | NUR ---
Report given to MAICO Landry
[2018-10-11 07:54] VITALS: BP 147/80; PULSE 96; TEMP 98.7
--- NOTE | 2018-10-11 08:05 | NUR ---
Report received from MAICO Covarrubias.
--- NOTE | 2018-10-11 09:05 | NUR ---
Pt awake and alert upon entru, sitting up in recliner, Some C/O pain at this time. Shift assessments complete, left Pt call light in reach.
[2018-10-11 12:28] LABS: HEMOGLOBIN 10.4 g/dl (13.5-18.0); MEAN CELL VOLUME 95 fl (80.0-100.0); MEAN CORPUSCULAR HEMOGLOBIN 30 pg (27.0-31.0); MEAN CORPUSCULAR HGB CONC 32 g/dl (33.0-37.0); MEAN PLATELET VOLUME 9.6 fl (7.4-10.4); PLATELET COUNT 227 K/mm3 (130-400); RED BLOOD COUNT 3.47 M/mm3 (4.20-5.60); REDCELL DISTRIBUTION WIDTH-CV 14.8 % (11.5-14.5)
[2018-10-11 12:30] LABS: HEMATOCRIT 32.8 % (42.0-52.0)
[2018-10-11 12:40] LABS: ALBUMIN 3.3 gm/dL (3.5-5.0); CALCIUM 9.4 mg/dL (8.4-10.2); CREATININE, serum 3.16 (0.66-1.25); PHOSPHOROUS 3.3 mg/dL (2.5-4.5); POTASSIUM 4.1 mmol/L (3.4-5.0)
[2018-10-11 12:48] LABS: BASOPHIL 1 % (0-2); EOSINOPHIL 8 % (0-4); HYPOCHROMIA 2+; LYMPHOCYTE 21 % (20.0-51.0); METAMYELOCYTE 1 % (0-0); NEUTROPHILS 64 % (42.0-75.2); PLATELET ESTIMATE NORMAL (NORMAL)
[2018-10-11 16:54] VITALS: BP 103/60; PULSE 93; TEMP 98.1
--- NOTE | 2018-10-11 18:30 | NUR ---
Pt rested in room today, went this morning to dialysis, no C/O pain throughout the day, VS have remained stable.
--- NOTE | 2018-10-11 19:15 | NUR ---
Report given to MAICO Gamboa.
[2018-10-11 20:15] VITALS: BP 112/74; PULSE 97; TEMP 97.4
[2018-10-12 00:45] VITALS: BP 108/75; PULSE 99; TEMP 98.3
[2018-10-12 03:57] VITALS: BP 110/73; PULSE 98; TEMP 99.1
--- NOTE | 2018-10-12 05:30 | NUR ---
Dr. Nino was called at this time. He gave instructions to put discharge orders in on the patient.
--- NOTE | 2018-10-12 05:54 | NUR ---
Patient had uneventful night. Discharge orders are in and paperwork signed. Will be ready for discharge at 0730. Resting in bed. Call light within reach.
--- NOTE | 2018-10-12 06:44 | NUR ---
Report given to MAICO Landry.
--- NOTE | 2018-10-12 07:46 | NUR ---
Pt discharged to home, escorted to entrance, [facility].
== END 2018-10-12 07:20 | disposition home or self-care (01) | DRG 432 ==
LOC: COL.ER 16:36 → MEDICAL 19:01
PROVIDERS: Emergency Medicine; ADMIT Internal Medicine Nephrology
PROC: 5A1D70Z Performance of Urinary Filtration, Intermittent, Less than 6 Hours Per Day (ICD-10-PCS; principal; 2018-10-10)
PROC: 0W9G3ZZ Drainage of Peritoneal Cavity, Percutaneous Approach (ICD-10-PCS; 2018-10-10)
DX: K74.60 Unspecified cirrhosis of liver (principal); N18.6 End stage renal disease; E43 Unspecified severe protein-calorie malnutrition; I12.0 Hypertensive chronic kidney disease with stage 5 chronic kidney disease or end stage renal disease; R18.8 Other ascites; E11.42 Type 2 diabetes mellitus with diabetic polyneuropathy; E87.70 Fluid overload, unspecified; E11.621 Type 2 diabetes mellitus with foot ulcer; E11.22 Type 2 diabetes mellitus with diabetic chronic kidney disease; E66.9 Obesity, unspecified; G47.30 Sleep apnea, unspecified; E78.5 Hyperlipidemia, unspecified; R09.02 Hypoxemia; E87.5 Hyperkalemia; E83.39 Other disorders of phosphorus metabolism; Z99.2 Dependence on renal dialysis; Z87.891 Personal history of nicotine dependence; Z88.8 Allergy status to other drugs, medicaments and biological substances
CPT/HCPCS: J1644; J2270; J2405; J3010; J7030

== ENCOUNTER → 2018-11-02 | Outpatient (CLI) | payer OTHER ==
[~2018-11-02] VITALS: Ht 182.9 cm; Wt 80.7 kg
[2018-11-02 09:33] VITALS: BP 108/74; PULSE 103
[2018-11-02 10:40] VITALS: BP 116/74; PULSE 105
--- NOTE | 2018-11-02 11:00 | NUR ---
PT AMBULATES USING WHEELED WALKER TO VISITOR ENTRANCE WITH STAFF TO WAIT FOR [facility] BUS.
== END ==
LOC: COL.RAD 09:11
DX: N18.5 Chronic kidney disease, stage 5 (principal); R18.8 Other ascites
CPT/HCPCS: 19804

== ENCOUNTER 2018-11-17 11:30 | Outpatient (RCR) | payer OTHER | END 2019-01-01 | LOC: WSPT | DX: R53.1 Weakness (principal) ==

== ENCOUNTER → 2018-11-23 | Outpatient (CLI) | payer OTHER ==
[2018-11-23 09:10] VITALS: BP 115/47; PULSE 101
[2018-11-23 11:00] VITALS: BP 111/72; PULSE 106
== END ==
LOC: COL.RAD 08:49
DX: N18.5 Chronic kidney disease, stage 5 (principal); R18.8 Other ascites

== ENCOUNTER → 2018-12-14 | Outpatient (CLI) | payer OTHER ==
[~2018-12-14] VITALS: Ht 182.9 cm; Wt 77.2 kg
[2018-12-14 14:30] VITALS: BP 102/66; PULSE 110
== END ==
LOC: COL.RAD 12:41
DX: N18.5 Chronic kidney disease, stage 5 (principal); R18.8 Other ascites